=== PATIENT | male | born 1935 | race Caucasian/White ===

== ENCOUNTER 2020-06-04 21:29 | Inpatient (IN) | payer OTHER, MEDICARE ==
[~2020-06-04] VITALS: Ht 172.7 cm; Wt 77.0 kg
[2020-06-04] MEDS ORDERED: ATOR40TA PO (21:55)
[2020-06-04] MEDS ORDERED: CYCL10 PO (21:55)
[2020-06-04] MEDS ORDERED: DILTIAZEM 24HR120 M2 PO (21:57)
[2020-06-04] MEDS ORDERED: OMEP20ER PO (21:58)
[2020-06-04] MEDS ORDERED: LIDO5TO (21:58)
[2020-06-04] MEDS ORDERED: OXYC5 PO (21:59)
[2020-06-04] MEDS ORDERED: PREG100 PO (22:00)
[2020-06-04] MEDS ORDERED: XARELTO20 MG PO (22:01)
[2020-06-04] MEDS ORDERED: TAMS.4ER PO (22:02)
[2020-06-04 22:41] LABS: BASOPHILS ABSOLUTE AUTO 0.04 K/mm3 (0.00-0.23); BASOPHILS PERCENT AUTO 0 % (0-2); EOSINOPHILS ABSOLUTE AUTO 0.14 K/mm3 (0.00-0.68); EOSINOPHILS PERCENT AUTO 1 % (0-6); Hematocrit 37.5 % (37.0-53.0); IMMATURE GRAN ABSOLUTE AUTO 0.03 K/mm3 (0.00-0.10); IMMATURE GRAN PERCENT AUTO 0 % (0-1); LYMPHOCYTES ABSOLUTE AUTO 3.57 K/mm3 (0.84-5.20); LYMPHOCYTES PERCENT AUTO 30 % (21-46); MONOCYTES ABSOLUTE AUTO 0.92 K/mm3 (0.16-1.47); MONOCYTES PERCENT AUTO 8 % (4-13); Mean Corpuscular HGB 29.3 pg (26.0-34.0); Mean Corpuscular Volume 92 fL (80-100); Mean Platelet Volume 10.8 fL (9.1-12.4); NEUTROPHILS ABSOLUTE AUTO 7.21 K/mm3 (1.96-9.15); NEUTROPHILS PERCENT AUTO 61 % (41-73); Platelet Count 227 K/mm3 (150-400); RDW Coefficient Variation 13.9 % (11.7-14.2); RDW Standard Deviation 47.2 fL (35.1-46.3); Red Blood Cell Count 4.09 M/mm3 (4.30-5.90); White Blood Cell Count 11.91 K/mm3 (4.00-11.30)
[2020-06-04 23:08] LABS: Alanine Aminotransfer (ALT/SGP 16 U/L (12-78); Albumin, Blood 3.3 g/dL (3.4-5.0); Albumin/Globulin Ratio 0.8 (0.8-1.8); Alk Phos 103 U/L (50-136); Anion Gap 6 mmol/L (6-16); Aspartate Aminotrans (AST/SGOT 22 U/L (12-37); Bilirubin, Total 0.4 mg/dL (0.1-1.0); Blood Urea Nitrogen 17 mg/dL (8-24); Bun/Creatinine Ratio 18.5 (12.0-20.0); CO2, Blood 26 mmol/L (21-32); Calcium, Blood 8.5 mg/dL (8.5-10.1); Chloride, Blood 105 mmol/L (98-108); Creatinine, Blood 0.92 mg/dL (0.60-1.20); Globulin, Blood 3.9 g/dL (2.2-4.0); Glomerular Filtration Rate >60 (60-); Glucose, Blood 135 mg/dL (70-99); Potassium, Blood 4.2 mmol/L (3.5-5.5); Sodium, Blood 137 mmol/L (136-145); Total Protein, Blood 7.2 g/dL (6.4-8.2)
--- NOTE | 2020-06-05 02:00 | NUR ---
PATIENT ARRIVED VIA STRETCHER AT 0030 FROM THE ER, AWAKE AND AWARE, WITH MODERATE PAIN TREATED WITH IV PAIN MEDICATION. HE HAS A LARGE FIRM SOFTBALL SIZED HEMATOMA ON HIS RIGHT HIP/PROXIMAL FEMUR. THE POSTERIOR PORTION OF THE HEMATOMA IS PURPLE IN COLOR ON THE SKIN. PAINFUL TO LIGHT TOUGH, TURNING AND REPOSITIONING. LT HIP IS FRACTURED PER REPORT. HE HAS PAIN IN BOTH RT AND LT HIPS. PERIPHERAL PULSES PRESENT, <2 SECONDS CAP REFILL BILAT LE. PATIENT ORIENTED TO THE ROOM AND CALL LIGHT. CALL LIGHT IN REACH, URINAL IN REACH.
[2020-06-05 04:47] LABS: BASOPHILS ABSOLUTE AUTO 0.03 K/mm3 (0.00-0.23); BASOPHILS PERCENT AUTO 0 % (0-2); EOSINOPHILS ABSOLUTE AUTO 0.14 K/mm3 (0.00-0.68); EOSINOPHILS PERCENT AUTO 2 % (0-6); Hematocrit 35.1 % (37.0-53.0); Hemoglobin 11.2 g/dL (13.5-17.5); IMMATURE GRAN ABSOLUTE AUTO 0.01 K/mm3 (0.00-0.10); IMMATURE GRAN PERCENT AUTO 0 % (0-1); LYMPHOCYTES ABSOLUTE AUTO 1.94 K/mm3 (0.84-5.20); LYMPHOCYTES PERCENT AUTO 28 % (21-46); MONOCYTES ABSOLUTE AUTO 0.99 K/mm3 (0.16-1.47); MONOCYTES PERCENT AUTO 14 % (4-13); Mean Corpuscular HGB 28.9 pg (26.0-34.0); Mean Corpuscular HGB Conc 31.9 g/dL (31.5-36.5); Mean Corpuscular Volume 91 fL (80-100); Mean Platelet Volume 10.3 fL (9.1-12.4); NEUTROPHILS PERCENT AUTO 56 % (41-73); Platelet Count 192 K/mm3 (150-400); RDW Standard Deviation 46.4 fL (35.1-46.3); Red Blood Cell Count 3.88 M/mm3 (4.30-5.90); White Blood Cell Count 7.01 K/mm3 (4.00-11.30)
--- NOTE | 2020-06-05 05:01 | NUR ---
PATIENT HAS BEEN ABLE TO SLEEP SINCE ADMISSION. HE HAS BEEN ABLE TO READJUST HIS BODY SLIGHTLY TO POC. NO ACUTE CHANGES. PATIENT HAS NOT HAD ANYTHING TO EAT TONIGHT AND HAS ONLY HAD SIPS OF WATER UP TO 0200. NO KNOWN PLANS FOR SURGERY TODAY, COVID TEST SENT. CALL LIGHT IN REACH.
[2020-06-05 05:09] LABS: Anion Gap 5 mmol/L (6-16); Blood Urea Nitrogen 15 mg/dL (8-24); Bun/Creatinine Ratio 16.8 (12.0-20.0); CO2, Blood 28 mmol/L (21-32); Calcium, Blood 8.4 mg/dL (8.5-10.1); Chloride, Blood 105 mmol/L (98-108); Glomerular Filtration Rate >60 (60-); Glucose, Blood 96 mg/dL (70-99); Potassium, Blood 3.8 mmol/L (3.5-5.5); Sodium, Blood 138 mmol/L (136-145)
--- NOTE | 2020-06-05 15:35 | NUR ---
THIS RN RECIEVED REPORT AND IS ASSUMING CARE OF PT AT THIS TIME. PT RESTING QUIETLY, RESP E/U.
--- NOTE | 2020-06-05 19:24 | NUR ---
REPORT GIVEN TO YAYA RN.
--- NOTE | 2020-06-06 03:50 | NUR ---
SHIFT SUMMARY: PT A&O X4. VSS. AWAITING SURGERY FOR L HIP FX. PLAN FOR OR TODAY. PT HAS BEEN NPO SINCE MIDNIGHT WITH LR INFUSING AT 75CC/HR PER ORDERS. CBG Q6. BLOOD SURGAR HAS BEEN STABLE AT 113. PT NOT REQUIRING PAIN MEDICATION OVER NIGHT. APPEARS TO BE RESTING. NO COMPLAINTS AT THIS TIME.
--- NOTE | 2020-06-06 09:45 | NUR ---
PT TAKEN TO PACU BY SAVANNAH CALDERON.
--- NOTE | 2020-06-06 19:44 | NUR ---
SHIFT SUMMARY PT HAD SURGERY TO DAY WITH DR. RENDON. HE ARRIVED BACK TO THE UNIT AT 1750. HE IS SLEEPING BUT AWAKENS WHEN SPOKEN TO. VSS. REPORT GIVEN TO TATA CALDERON.
--- NOTE | 2020-06-07 05:31 | NUR ---
POD1 ROBERT/ANTERIOR APPROACH R/T CLOSE HIP FX. VSS. PT DENIES PAIN. OFFERED TO TAKE PAIN MEDS BUT PT REFUSED. PT SLEPT GOOD LAST NIGHT. ENC TURN Q2 LAST NIGHT. AQUACEL DRESSING ON R HIP, CDI. PT LAURA PO INTAKE WELL DENIES N/V. PT NO APPETITE LAST NIGHT, JUST HAD SHANE AND WATER. DIET ADV LAURA. PT DENIES PASSING FLATUS. BEDREST. PT HAS CHRONIC N/T. WEAN ON 1L O2, WITH 95% SAT. RA ON BASELINE ABX AND FLUIDS ADMINSTERED. ADEQUATE UA OUTPUT, USING URINAL. CBG AT 165 LAST NIGHT. ANTICIPATING PT/OT EVAL TODAY.
[2020-06-07 09:00] LABS: Hematocrit 29.3 % (37.0-53.0); Hemoglobin 9.8 g/dL (13.5-17.5); Mean Corpuscular HGB Conc 33.4 g/dL (31.5-36.5); Mean Corpuscular Volume 90 fL (80-100); Mean Platelet Volume 10.3 fL (9.1-12.4); Platelet Count 165 K/mm3 (150-400); RDW Coefficient Variation 13.6 % (11.7-14.2); RDW Standard Deviation 44.7 fL (35.1-46.3); Red Blood Cell Count 3.27 M/mm3 (4.30-5.90); White Blood Cell Count 13.44 K/mm3 (4.00-11.30)
[2020-06-07 09:22] LABS: Albumin, Blood 2.5 g/dL (3.4-5.0); Anion Gap 7 mmol/L (6-16); Blood Urea Nitrogen 16 mg/dL (8-24); Bun/Creatinine Ratio 18.1 (12.0-20.0); CO2, Blood 27 mmol/L (21-32); Calcium, Blood 8.4 mg/dL (8.5-10.1); Chloride, Blood 105 mmol/L (98-108); Creatinine, Blood 0.88 mg/dL (0.60-1.20); Glomerular Filtration Rate >60 (60-); Glucose, Blood 155 mg/dL (70-99); Phosphorus, Blood 3.3 mg/dL (2.5-4.9); Sodium, Blood 139 mmol/L (136-145)
--- NOTE | 2020-06-07 16:14 | NUR ---
Shift summary Patient has ambulated in the [place] multiple times this shift with a SBA. VSS. Pain controlled with Oxycodone. Patient has been up in the recliner chair for most of the day. Patient likely to discharge home tomorrow after working with physical therapy. Call light within patient reach.
--- NOTE | 2020-06-08 05:31 | NUR ---
SHIFT SUMMARY L HIP FX REPAIR POD2, A/O X4, VSS, PAIN WELL CONTROLLED PER EMAR, TOLERATING PO, PASSING FLATUS, DRESSING C/D/I, VOIDING WELL, PLAN TO DC HOME TODAY. CALL LIGHT IN REACH, WILL CONTINUE TO MONITOR AND REPORT TO ONCOMING DAY RN.
[2020-06-08 09:57] LABS: Hematocrit 31.1 % (37.0-53.0); Mean Corpuscular HGB 29.4 pg (26.0-34.0); Mean Corpuscular HGB Conc 32.2 g/dL (31.5-36.5); Mean Corpuscular Volume 92 fL (80-100); Mean Platelet Volume 10.4 fL (9.1-12.4); Platelet Count 189 K/mm3 (150-400); RDW Standard Deviation 47.4 fL (35.1-46.3); White Blood Cell Count 10.03 K/mm3 (4.00-11.30)
[2020-06-08] MEDS ORDERED: OXYC5 PO (12:48)
--- NOTE | 2020-06-08 16:04 | NUR ---
DISCHARGE SUMMARY PT A&OX4, VSS, LEFT FLOOR VIA WC WITH GUM ROLLING MACHINE TENDER TO GO HOME WITH NEPHEW, WITH ALL PERSONAL POSSESSIONS INCLUDING DENTURES, CELL PHONE/CLIPPER OPERATOR, DC PACKET AND 1 NARC SCRIPT. DC INSTRUCTIONS PROVIDED. PT REP UNDERSTANDING THOSE INSTRUCTIONS INCLUDING FU WITH SURGEON, WBAT, ALL AMBULATION WITH FWW (& GB - SENT HOME WITH PT), USE POLAR DEEPAK/ICE, CHANGE DRESSINGS ON SATURDAYS (2 AQUACEL DRESSINGS SENT HOME WITH PT). IV DC'D.
== END 2020-06-08 15:50 | disposition home or self-care (01) | DRG 522 ==
LOC: ER 21:29 → SURS 21:30
PROVIDERS: Emergency Medicine; Internal Medicine; Orthopaedic Surgery; ADMIT Family Medicine
PROC: 0SCB0ZZ Extirpation of Matter from Left Hip Joint, Open Approach (ICD-10-PCS; 2020-06-06)
PROC: 0SRS03A Replacement of Left Hip Joint, Femoral Surface with Ceramic Synthetic Substitute, Uncemented, Open Approach (ICD-10-PCS; principal; 2020-06-06 10:00)
DX: S72.002A Fracture of unspecified part of neck of left femur, initial encounter for closed fracture (principal); I48.20 Chronic atrial fibrillation, unspecified; E11.9 Type 2 diabetes mellitus without complications; E78.5 Hyperlipidemia, unspecified; G62.9 Polyneuropathy, unspecified; I10 Essential (primary) hypertension; I25.10 Atherosclerotic heart disease of native coronary artery without angina pectoris; K21.9 Gastro-esophageal reflux disease without esophagitis; Z85.46 Personal history of malignant neoplasm of prostate; Z95.1 Presence of aortocoronary bypass graft; Z96.653 Presence of artificial knee joint, bilateral; W19.XXXA Unspecified fall, initial encounter; M16.0 Bilateral primary osteoarthritis of hip; Z79.01 Long term (current) use of anticoagulants; N40.0 Benign prostatic hyperplasia without lower urinary tract symptoms; Z87.891 Personal history of nicotine dependence; Z66 Do not resuscitate
CPT/HCPCS: 20611; 36415; 71045; 72170; 80048; 80053; 80069; 82947; 85025; 85027; 88305; 88311; 93005; 93010; 97110; 97116; 97162; 97165; 97530; 97535; 99285-25; A9270-GY; C1776; J0171; J0690; J0735; J1100; J1885; J2405; J2704; J2795; J3010; J7120; U0004

== ENCOUNTER 2020-10-02 13:38 | Emergency (ER) | payer OTHER, MEDICARE ==
[~2020-10-02] VITALS: Ht 172.7 cm; Wt 76.7 kg
[~2020-10-02 13:38] MED LIST: ATOR40TA PO; CYCL10 PO; DILTIAZEM 24HR120 M2 PO; LIDO5TO; OMEP20ER PO; OXYC5 PO; PREG100 PO; TAMS.4ER PO; XARELTO20 MG PO
[2020-10-02 14:48] LABS: BASOPHILS ABSOLUTE AUTO 0.02 K/mm3 (0.00-0.23); BASOPHILS PERCENT AUTO 0 % (0-2); EOSINOPHILS ABSOLUTE AUTO 0.08 K/mm3 (0.00-0.68); EOSINOPHILS PERCENT AUTO 1 % (0-6); Hematocrit 39.1 % (37.0-53.0); IMMATURE GRAN ABSOLUTE AUTO 0.01 K/mm3 (0.00-0.10); IMMATURE GRAN PERCENT AUTO 0 % (0-1); LYMPHOCYTES ABSOLUTE AUTO 1.62 K/mm3 (0.84-5.20); LYMPHOCYTES PERCENT AUTO 29 % (21-46); MONOCYTES ABSOLUTE AUTO 0.69 K/mm3 (0.16-1.47); MONOCYTES PERCENT AUTO 12 % (4-13); Mean Corpuscular HGB 28.3 pg (26.0-34.0); Mean Corpuscular HGB Conc 33.2 g/dL (31.5-36.5); Mean Corpuscular Volume 85 fL (80-100); Mean Platelet Volume 10.4 fL (9.1-12.4); NEUTROPHILS ABSOLUTE AUTO 3.22 K/mm3 (1.96-9.15); NEUTROPHILS PERCENT AUTO 57 % (41-73); Platelet Count 221 K/mm3 (150-400); RDW Standard Deviation 46.5 fL (35.1-46.3); White Blood Cell Count 5.64 K/mm3 (4.00-11.30)
[2020-10-02 15:10] LABS: Alanine Aminotransfer (ALT/SGP 19 U/L (12-78); Albumin, Blood 3.3 g/dL (3.4-5.0); Albumin/Globulin Ratio 0.8 (0.8-1.8); Alk Phos 94 U/L (50-136); Anion Gap 7 mmol/L (6-16); Aspartate Aminotrans (AST/SGOT 16 U/L (12-37); Bilirubin, Total 0.6 mg/dL (0.1-1.0); Blood Urea Nitrogen 19 mg/dL (8-24); Bun/Creatinine Ratio 17.3 (12.0-20.0); CO2, Blood 24 mmol/L (21-32); Chloride, Blood 108 mmol/L (98-108); Globulin, Blood 4.4 g/dL (2.2-4.0); Glomerular Filtration Rate >60 (60-); Glucose, Blood 140 mg/dL (70-99); Potassium, Blood 3.9 mmol/L (3.5-5.5); Sodium, Blood 139 mmol/L (136-145); Total Protein, Blood 7.7 g/dL (6.4-8.2)
[2020-10-02 15:12] LABS: Troponin I <0.015 ng/mL (0.000-0.040)
== END 2020-10-02 16:30 | disposition home or self-care (01) ==
LOC: ER 13:38
PROVIDERS: Emergency Medicine
DX: I48.91 Unspecified atrial fibrillation (principal); E11.9 Type 2 diabetes mellitus without complications; Z79.899 Other long term (current) drug therapy; Z88.8 Allergy status to other drugs, medicaments and biological substances
CPT/HCPCS: 71045; 80053; 83880; 84484; 85025; 93005; 93010; 96374; 99284-25

== ENCOUNTER 2021-08-16 15:38 | Emergency (ER) | payer OTHER, MEDICARE ==
[~2021-08-16] VITALS: Ht 170.2 cm; Wt 72.6 kg
[2021-08-16 16:05] LABS: BASOPHILS ABSOLUTE AUTO 0.05 K/mm3 (0.00-0.23); BASOPHILS PERCENT AUTO 1 % (0-2); EOSINOPHILS ABSOLUTE AUTO 0.16 K/mm3 (0.00-0.68); EOSINOPHILS PERCENT AUTO 2 % (0-6); Hematocrit 37.8 % (37.0-53.0); Hemoglobin 12.5 g/dL (13.5-17.5); IMMATURE GRAN ABSOLUTE AUTO 0.01 K/mm3 (0.00-0.10); IMMATURE GRAN PERCENT AUTO 0 % (0-1); LYMPHOCYTES PERCENT AUTO 43 % (21-46); MONOCYTES ABSOLUTE AUTO 1.05 K/mm3 (0.16-1.47); MONOCYTES PERCENT AUTO 13 % (4-13); Mean Corpuscular HGB 27.3 pg (26.0-34.0); Mean Corpuscular HGB Conc 33.1 g/dL (31.5-36.5); Mean Corpuscular Volume 83 fL (80-100); Mean Platelet Volume 9.5 fL (9.1-12.4); NEUTROPHILS ABSOLUTE AUTO 3.32 K/mm3 (1.96-9.15); NEUTROPHILS PERCENT AUTO 41 % (41-73); Platelet Count 271 K/mm3 (150-400); RDW Coefficient Variation 14.6 % (11.7-14.2); RDW Standard Deviation 43.8 fL (35.1-46.3); Red Blood Cell Count 4.58 M/mm3 (4.30-5.90); White Blood Cell Count 8.09 K/mm3 (4.00-11.30)
[2021-08-16 16:22] LABS: Alanine Aminotransfer (ALT/SGP 18 U/L (12-78); Albumin, Blood 3.5 g/dL (3.4-5.0); Albumin/Globulin Ratio 0.7 (0.8-1.8); Alk Phos 94 U/L (50-136); Anion Gap 7 mmol/L (6-16); Aspartate Aminotrans (AST/SGOT 21 U/L (12-37); Bilirubin, Total 0.4 mg/dL (0.1-1.0); Blood Urea Nitrogen 19 mg/dL (8-24); Bun/Creatinine Ratio 19.9 (12.0-20.0); CO2, Blood 25 mmol/L (21-32); Calcium, Blood 9.1 mg/dL (8.5-10.1); Chloride, Blood 102 mmol/L (98-108); Creatinine, Blood 0.96 mg/dL (0.60-1.20); Globulin, Blood 4.8 g/dL (2.2-4.0); Glomerular Filtration Rate >60 (60-); Glucose, Blood 71 mg/dL (70-99); Potassium, Blood 4.2 mmol/L (3.5-5.5); Sodium, Blood 134 mmol/L (136-145); Total Protein, Blood 8.3 g/dL (6.4-8.2); Troponin I <0.015 ng/mL (0.000-0.040)
[2021-08-16] MEDS ORDERED: C COMPLEX1000 M1 PO (17:19)
[2021-08-16] MEDS ORDERED: MAGNESIUM OXID500 MG PO (17:19)
[2021-08-16 17:21] LABS: Source, Urine Condom Cath
[2021-08-16 17:33] LABS: Bilirubin, Urine Neg (Neg); Blood, Urine 2+ (Neg); Glucose Qualitative, Urine Neg (Neg); Ketones, Urine Neg (Neg); Leukocyte Esterase, Urine Neg (Neg); Nitrite, Urine Neg (Neg); Protein, Urine Neg (Neg); Specific Gravity, Urine 1.005 (1.003-1.022); Urobilinogen, Urine NORM (Normal)
[2021-08-16 17:42] LABS: Appearance, Urine Clear (Clear); Color, Urine Pale Yellow (P-Yellow)
[2021-08-16 17:43] LABS: Bacteria Rare /hpf; Squamous Epithelial Cells Rare /hpf (Few); White Blood Cells, Urine 0-2 /hpf (0-5)
== END 2021-08-16 18:18 | disposition home or self-care (01) ==
LOC: ER 15:38
PROVIDERS: Emergency Medicine; Physician Assistant
DX: R42 Dizziness and giddiness (principal); I48.91 Unspecified atrial fibrillation; E11.9 Type 2 diabetes mellitus without complications; Z88.3 Allergy status to other anti-infective agents; Z79.899 Other long term (current) drug therapy; I25.810 Atherosclerosis of coronary artery bypass graft(s) without angina pectoris
CPT/HCPCS: 71045; 80053; 81001; 84484; 85025; 93005; 93010; 99285-25

== ENCOUNTER 2021-12-17 08:35 | Day surgery (SDC) | payer OTHER ==
[~2021-12-17] VITALS: Ht 172.7 cm; Wt 72.6 kg
[~2021-12-17 08:35] MED LIST changes: +C COMPLEX1000 M1 PO; +MAGNESIUM OXID500 MG PO
[2021-12-17] MEDS ORDERED: Ketoconazole120 ML TOP (09:26)
[2021-12-17] MEDS ORDERED: FERROUS GLUCON324 M7 PO (09:27)
== END 2021-12-17 23:00 | disposition home or self-care (01) ==
LOC: MHTC 08:35
DX: I35.0 Nonrheumatic aortic (valve) stenosis (principal); I25.10 Atherosclerotic heart disease of native coronary artery without angina pectoris; T82.858A Stenosis of other vascular prosthetic devices, implants and grafts, initial encounter; E11.9 Type 2 diabetes mellitus without complications; I10 Essential (primary) hypertension; E78.5 Hyperlipidemia, unspecified; Z88.5 Allergy status to narcotic agent
CPT/HCPCS: 82947; 93459; 99152; 99153; C1760; C1769; C1894; J1644; J2250; J3010; J7030; Q9967

== ENCOUNTER 2022-05-25 12:36 | Emergency (ER) | payer OTHER ==
[~2022-05-25] VITALS: Ht 172.7 cm; Wt 65.8 kg
[~2022-05-25 12:36] MED LIST changes: +FERROUS GLUCON324 M7 PO; +Ketoconazole120 ML TOP
[2022-05-25 13:51] LABS: BASOPHILS ABSOLUTE AUTO 0.03 K/mm3 (0.00-0.23); BASOPHILS PERCENT AUTO 0 % (0-2); EOSINOPHILS ABSOLUTE AUTO 0.11 K/mm3 (0.00-0.68); EOSINOPHILS PERCENT AUTO 2 % (0-6); Hematocrit 39.5 % (37.0-53.0); Hemoglobin 13.9 g/dL (13.5-17.5); IMMATURE GRAN ABSOLUTE AUTO 0.01 K/mm3 (0.00-0.10); IMMATURE GRAN PERCENT AUTO 0 % (0-1); LYMPHOCYTES ABSOLUTE AUTO 1.72 K/mm3 (0.84-5.20); LYMPHOCYTES PERCENT AUTO 26 % (21-46); MONOCYTES ABSOLUTE AUTO 0.75 K/mm3 (0.16-1.47); MONOCYTES PERCENT AUTO 11 % (4-13); Mean Corpuscular HGB 30.9 pg (26.0-34.0); Mean Corpuscular HGB Conc 35.2 g/dL (31.5-36.5); Mean Corpuscular Volume 88 fL (80-100); Mean Platelet Volume 9.8 fL (9.1-12.4); NEUTROPHILS ABSOLUTE AUTO 4.08 K/mm3 (1.96-9.15); NEUTROPHILS PERCENT AUTO 61 % (41-73); Platelet Count 228 K/mm3 (150-400); RDW Coefficient Variation 13.2 % (11.7-14.2)
[2022-05-25 14:03] LABS: Albumin, Blood 3.5 g/dL (3.4-5.0); Albumin/Globulin Ratio 0.8 (0.8-1.8); Bilirubin, Total 0.7 mg/dL (0.1-1.0); Bun/Creatinine Ratio 16.7 (12.0-20.0); Calcium, Blood 9.3 mg/dL (8.5-10.1); Creatinine, Blood 0.9 mg/dL (0.60-1.20); Globulin, Blood 4.2 g/dL (2.2-4.0); Potassium, Blood 3.5 mmol/L (3.5-5.5); Total Protein, Blood 7.7 g/dL (6.4-8.2)
[2022-05-25] MEDS ORDERED: MECL12.5 PO (16:37)
== END 2022-05-25 17:12 | disposition home or self-care (01) ==
LOC: ER 12:36
PROVIDERS: Student in an Organized Health Care Education/Training Program
DX: R42 Dizziness and giddiness (principal); I25.10 Atherosclerotic heart disease of native coronary artery without angina pectoris; E11.9 Type 2 diabetes mellitus without complications; I48.91 Unspecified atrial fibrillation; Z88.5 Allergy status to narcotic agent; Z88.8 Allergy status to other drugs, medicaments and biological substances; Z79.899 Other long term (current) drug therapy
CPT/HCPCS: 36415; 71045; 80053; 83880; 84484; 85025; 93005; 93010; J2405; J7030

== ENCOUNTER 2023-04-30 11:04 | Emergency (ER) | payer OTHER ==
[~2023-04-30] VITALS: Ht 170.2 cm; Wt 68.5 kg
[~2023-04-30 11:04] MED LIST changes: +MECL12.5 PO
[2023-04-30 11:08] VITALS: BP 120/91
== END 2023-04-30 12:16 | disposition home or self-care (01) ==
LOC: ER 11:04
DX: S63.91XA Sprain of unspecified part of right wrist and hand, initial encounter (principal); W01.0XXA Fall on same level from slipping, tripping and stumbling without subsequent striking against object, initial encounter; E11.9 Type 2 diabetes mellitus without complications; I48.91 Unspecified atrial fibrillation; Z79.01 Long term (current) use of anticoagulants; Z95.1 Presence of aortocoronary bypass graft
CPT/HCPCS: 29125; 73130; 99283-25

== ENCOUNTER 2023-05-19 12:39 | Emergency (ER) | payer OTHER ==
[~2023-05-19] VITALS: Ht 170.2 cm; Wt 81.7 kg
[2023-05-19] MEDS ORDERED: GABAPENTIN600 MG PO (13:05)
[2023-05-19] MEDS ORDERED: DULO30 PO (13:05)
[2023-05-19] MEDS ORDERED: MELA3 PO (13:06)
[2023-05-19] MEDS ORDERED: FAMO40 PO (13:07)
[2023-05-19] MEDS ORDERED: STIOLTO RESPIMAT4 G1 INH (13:07)
[2023-05-19] MEDS ORDERED: CYCL10 PO (13:08)
[2023-05-19 13:29] LABS: BASOPHILS ABSOLUTE AUTO 0.05 K/mm3 (0.00-0.23); BASOPHILS PERCENT AUTO 1 % (0-2); EOSINOPHILS ABSOLUTE AUTO 0.15 K/mm3 (0.00-0.68); EOSINOPHILS PERCENT AUTO 3 % (0-6); Hematocrit 38.4 % (37.0-53.0); Hemoglobin 12.4 g/dL (13.5-17.5); IMMATURE GRAN ABSOLUTE AUTO 0.01 K/mm3 (0.00-0.10); IMMATURE GRAN PERCENT AUTO 0 % (0-1); LYMPHOCYTES ABSOLUTE AUTO 2.17 K/mm3 (0.84-5.20); LYMPHOCYTES PERCENT AUTO 42 % (21-46); MONOCYTES ABSOLUTE AUTO 0.67 K/mm3 (0.16-1.47); MONOCYTES PERCENT AUTO 13 % (4-13); Mean Corpuscular HGB 27.7 pg (26.0-34.0); Mean Corpuscular HGB Conc 32.3 g/dL (31.5-36.5); Mean Corpuscular Volume 86 fL (80-100); Mean Platelet Volume 9.8 fL (9.1-12.4); NEUTROPHILS ABSOLUTE AUTO 2.08 K/mm3 (1.96-9.15); NEUTROPHILS PERCENT AUTO 41 % (41-73); Platelet Count 286 K/mm3 (150-400); RDW Coefficient Variation 18.2 % (11.7-14.2); RDW Standard Deviation 57.1 fL (35.1-46.3); Red Blood Cell Count 4.48 M/mm3 (4.30-5.90); White Blood Cell Count 5.13 K/mm3 (4.00-11.30)
[2023-05-19 13:40] LABS: Albumin, Blood 3.3 g/dL (3.4-5.0); Albumin/Globulin Ratio 0.8 (0.8-1.8); Bilirubin, Total 0.3 mg/dL (0.1-1.0); Bun/Creatinine Ratio 13.4 (12.0-20.0); Calcium, Blood 9.2 mg/dL (8.5-10.1); Creatinine, Blood 1.12 mg/dL (0.60-1.20); Globulin, Blood 4.3 g/dL (2.2-4.0); Potassium, Blood 4.9 mmol/L (3.5-5.5); Total Protein, Blood 7.6 g/dL (6.4-8.2)
[2023-05-19] MEDS ORDERED: DILT30 PO (15:00)
[2023-05-19 15:15] VITALS: BP 127/104
== END 2023-05-19 15:20 | disposition home or self-care (01) ==
LOC: ER 12:39
PROVIDERS: Student in an Organized Health Care Education/Training Program
DX: I48.92 Unspecified atrial flutter (principal); Z95.1 Presence of aortocoronary bypass graft; E11.9 Type 2 diabetes mellitus without complications; Z88.1 Allergy status to other antibiotic agents; Z88.5 Allergy status to narcotic agent; Z88.6 Allergy status to analgesic agent; Z79.01 Long term (current) use of anticoagulants; Z79.899 Other long term (current) drug therapy
CPT/HCPCS: 80053; 83735; 85025; 96374; 99285-25

== ENCOUNTER 2023-05-20 14:04 | Emergency (ER) | payer OTHER ==
[~2023-05-20] VITALS: Ht 170.2 cm; Wt 68.5 kg
[~2023-05-20 14:04] MED LIST changes: +DILT30 PO; +DULO30 PO; +FAMO40 PO; +GABAPENTIN600 MG PO; +MELA3 PO; +STIOLTO RESPIMAT4 G1 INH
[2023-05-20 14:48] LABS: BASOPHILS ABSOLUTE AUTO 0.03 K/mm3 (0.00-0.23); BASOPHILS PERCENT AUTO 1 % (0-2); EOSINOPHILS ABSOLUTE AUTO 0.16 K/mm3 (0.00-0.68); EOSINOPHILS PERCENT AUTO 4 % (0-6); Hematocrit 41.9 % (37.0-53.0); Hemoglobin 13.6 g/dL (13.5-17.5); IMMATURE GRAN PERCENT AUTO 0 % (0-1); LYMPHOCYTES ABSOLUTE AUTO 1.63 K/mm3 (0.84-5.20); LYMPHOCYTES PERCENT AUTO 38 % (21-46); MONOCYTES ABSOLUTE AUTO 0.47 K/mm3 (0.16-1.47); MONOCYTES PERCENT AUTO 11 % (4-13); Mean Corpuscular HGB 27.7 pg (26.0-34.0); Mean Corpuscular HGB Conc 32.5 g/dL (31.5-36.5); Mean Corpuscular Volume 85 fL (80-100); Mean Platelet Volume 9.7 fL (9.1-12.4); NEUTROPHILS ABSOLUTE AUTO 2.04 K/mm3 (1.96-9.15); NEUTROPHILS PERCENT AUTO 47 % (41-73); Platelet Count 243 K/mm3 (150-400); RDW Standard Deviation 56.4 fL (35.1-46.3); Red Blood Cell Count 4.91 M/mm3 (4.30-5.90); White Blood Cell Count 4.33 K/mm3 (4.00-11.30)
[2023-05-20 15:06] LABS: Albumin, Blood 3.5 g/dL (3.4-5.0); Albumin/Globulin Ratio 0.8 (0.8-1.8); Bilirubin, Total 0.6 mg/dL (0.1-1.0); Bun/Creatinine Ratio 13.9 (12.0-20.0); Calcium, Blood 9.2 mg/dL (8.5-10.1); Creatinine, Blood 1.08 mg/dL (0.60-1.20); Globulin, Blood 4.6 g/dL (2.2-4.0); Potassium, Blood 4.4 mmol/L (3.5-5.5); Total Protein, Blood 8.1 g/dL (6.4-8.2)
[2023-05-20 15:30] VITALS: BP 114/105
== END 2023-05-20 15:44 | disposition home or self-care (01) ==
LOC: ER 14:04
PROVIDERS: Emergency Medicine
DX: I48.91 Unspecified atrial fibrillation (principal); Z88.1 Allergy status to other antibiotic agents; Z88.5 Allergy status to narcotic agent; Z88.8 Allergy status to other drugs, medicaments and biological substances; Z79.899 Other long term (current) drug therapy; E11.9 Type 2 diabetes mellitus without complications
CPT/HCPCS: 80053; 85025; 93005; 93010; 99284-25

== ENCOUNTER 2023-05-25 13:04 | Inpatient (IN) | payer OTHER ==
[~2023-05-25] VITALS: Ht 160 cm; Wt 69.0 kg
[2023-05-25 13:44] LABS: BASOPHILS ABSOLUTE AUTO 0.02 K/mm3 (0.00-0.23); BASOPHILS PERCENT AUTO 0 % (0-2); EOSINOPHILS ABSOLUTE AUTO 0.16 K/mm3 (0.00-0.68); EOSINOPHILS PERCENT AUTO 3 % (0-6); Hematocrit 34.1 % (37.0-53.0); Hemoglobin 11.3 g/dL (13.5-17.5); IMMATURE GRAN ABSOLUTE AUTO 0.01 K/mm3 (0.00-0.10); IMMATURE GRAN PERCENT AUTO 0 % (0-1); LYMPHOCYTES ABSOLUTE AUTO 1.73 K/mm3 (0.84-5.20); LYMPHOCYTES PERCENT AUTO 32 % (21-46); MONOCYTES ABSOLUTE AUTO 0.66 K/mm3 (0.16-1.47); MONOCYTES PERCENT AUTO 12 % (4-13); Mean Corpuscular HGB 28.2 pg (26.0-34.0); Mean Corpuscular HGB Conc 33.1 g/dL (31.5-36.5); Mean Corpuscular Volume 85 fL (80-100); Mean Platelet Volume 10.1 fL (9.1-12.4); NEUTROPHILS ABSOLUTE AUTO 2.91 K/mm3 (1.96-9.15); NEUTROPHILS PERCENT AUTO 53 % (41-73); Platelet Count 236 K/mm3 (150-400); RDW Coefficient Variation 17.9 % (11.7-14.2); Red Blood Cell Count 4.01 M/mm3 (4.30-5.90); White Blood Cell Count 5.49 K/mm3 (4.00-11.30)
[2023-05-25 14:03] LABS: Albumin, Blood 3.3 g/dL (3.4-5.0); Albumin/Globulin Ratio 0.8 (0.8-1.8); Bilirubin, Total 0.3 mg/dL (0.1-1.0); Calcium, Blood 8.9 mg/dL (8.5-10.1); Globulin, Blood 3.9 g/dL (2.2-4.0); Magnesium, Blood 1.8 mg/dL (1.6-2.4); Potassium, Blood 4.2 mmol/L (3.5-5.5); Total Protein, Blood 7.2 g/dL (6.4-8.2)
[2023-05-25] MEDS ORDERED: DILT30 PO (14:30)
[2023-05-25] MEDS ORDERED: DILT60 PO (15:14)
[2023-05-25] MEDS ORDERED: TAMS.4ER PO (16:45)
--- NOTE | 2023-05-25 17:51 | NUR ---
Call to Dr. Dyer regarding elevated troponin of 819. New order for aspirin and another troponin draw 6 hours from the last one. Pt arriving to PCU shortly from the ED.
[2023-05-25 18:00] VITALS: BP 153/114
--- NOTE | 2023-05-25 18:00 | NUR ---
Arrival to the unit. Ambulatory in the room ad danielle, asymptomatic with atrial flutter 133 bpm. Pt sat on side of bed and vital signs were taken. DEnies shortness of breath, denies discomfort/pain at this time.
[2023-05-25] MEDS ORDERED: DILT120ERA PO (18:17)
--- NOTE | 2023-05-25 19:28 | NUR ---
Bedside report given to Sarita Solorzano RN.
[2023-05-25 20:24] VITALS: BP 123/84
--- NOTE | 2023-05-25 23:16 | NUR ---
CALL TO MD this rn called md to inform of critical high trop. md placed new orders. see orders. patient remains chest pain free and no changes in condition.
[2023-05-25 23:19] VITALS: BP 128/73
[2023-05-26] LABS: Anti-Xa UFH, PHA Monitoring <0.10 IU/mL; International Normalized Ratio 1.04; Prothrombin Time Results 10.9 Sec (9.7-11.5)
[2023-05-26 02:19] LABS: Hematocrit 32.5 % (37.0-53.0); Hemoglobin 10.8 g/dL (13.5-17.5); Mean Corpuscular HGB Conc 33.2 g/dL (31.5-36.5); Mean Corpuscular Volume 84 fL (80-100); Mean Platelet Volume 9.8 fL (9.1-12.4); Platelet Count 229 K/mm3 (150-400); RDW Coefficient Variation 17.8 % (11.7-14.2); RDW Standard Deviation 54.8 fL (35.1-46.3); Red Blood Cell Count 3.86 M/mm3 (4.30-5.90); White Blood Cell Count 5.76 K/mm3 (4.00-11.30)
[2023-05-26 02:46] LABS: Bun/Creatinine Ratio 15.8 (12.0-20.0); Calcium, Blood 8.3 mg/dL (8.5-10.1); Creatinine, Blood 1.01 mg/dL (0.60-1.20); Potassium, Blood 3.9 mmol/L (3.5-5.5); Thyroid Stimulating Hormone 2.68 uIU/mL (0.360-4.800)
[2023-05-26 03:20] VITALS: BP 121/72
--- NOTE | 2023-05-26 04:04 | NUR ---
CRITICAL TROP patient had criticalhigh trop. this rn called md and orders placed.
--- NOTE | 2023-05-26 04:10 | NUR ---
shift summary this rn assumed care at 1900. vital signs stable. tele afib 100s. patient is alert and oriented x4. perrla. patient reports no chest pain/pressure throughout this shift. patient reports no shortness of breath. patient reports neuropathy which patient received evening neurotinin for, and still reported discomfort from it throughout the night. patient started on a heparin drip at 15u/kg/hr, rate 21.6ml/hr and dose weight at 72kg. see emar. see shift assessment for further detials. plan of care is up to date. call light within reach.
[2023-05-26 09:32] VITALS: BP 124/91
[2023-05-26 12:15] VITALS: BP 125/96
[2023-05-26 16:41] VITALS: BP 130/99
--- NOTE | 2023-05-26 18:54 | NUR ---
ASSUMED CARE OF PT AT 0700 THIS AM. NO ACUTE CHANGES T/O THE SHIFT. PT HAS DENIED CHEST PAIN OR PRESSURE ALL DAY. DR PATTEN (KNOWLEDGE MANAGEMENT ADVISOR) CONSULTED BY DR MOODY R/T PT'S ELEVATED TROPS AND SEVERE AV STENOSIS ON ECHO. PLAN TO [facility] FOR NEW DX CHF, MONITOR PT UNTIL MONDAY AND LIKELY DISCHARGE IF DOING WELL. PLAN IS FOR PT TO FOLLOW UP AN OUTPT FOR POSSIBLE TAVR IN THE NEAR FUTURE. PT AND FAMILY UPDATED ON PLAN OF CARE. PT HAS REMAINED ON HEPARIN GTT T/O THE SHIFT. WILL CONTINUE TO MONITOR AND GIVE REPORT TO NOC SHIFT RN.
[2023-05-26 20:00] VITALS: BP 108/71
[2023-05-26 23:13] VITALS: BP 119/69
[2023-05-27 03:34] VITALS: BP 117/67
[2023-05-27 05:17] LABS: Hematocrit 37.1 % (37.0-53.0); Hemoglobin 11.3 g/dL (13.5-17.5); Mean Platelet Volume 10.7 fL (9.1-12.4); Platelet Count 203 K/mm3 (150-400)
--- NOTE | 2023-05-27 05:59 | NUR ---
SHIFT SUMMARY A/Ox4 AND COOPERATIVE WITH STAFF. ANSWERS QUESTIONS APPROPRIATELY AND ABLE TO MAKE HIS NEEDS KNOWN. NO ACUTE EVENT OVERNIGHT FOR PT WAS ABLE TO SLEEP T/O MOST OF THE SHIFT. CARDIAC, REMAINS IN AFIB RHYTHM RANGING 90-110's WITH NO REPORTS OF ANY CP OR PRESSURE T/O THE NIGHT. PT HAD TWO FIVE BEAT RUNS OF V-TACH OVERNIGHT. PT WAS ASYMPTOMATIC OF THESE EVENTS. SBP HAS BEEN STABLE RANGING 100-110's. RESPIRATORY, MAINTAINS SPO2 >92% ON RA WITH NO COMPLAINTS OF SOB WHILE AT REST. GI/, ABLE TO AMBULATE TO BATHROOM VIA SBA. DENIES ANY CP, PRESSURE, DIZZINESS, OR PALPITATIONS WITH EXERTION. REPORTS x3 BM's THIS SHIFT, WITH EACH ONE BECOMING MORE LOOSE THEN THE LAST. HEPARIN gtt IS BEING MANAGED BY PHARMACY AND HAS BEEN RUNNING T/O THE NIGHT ORDERED VIA EMAR. POTENTIAL D/C ON 05/28 AFTER 48 HR ADMINISTRATION OF HEPARIN PER MD ORDERS. ASSESSED PT FOR RISKS OF ANY IGNITION SOURCES WELL BEHAVIORS FOR INCREASED RISKS OF FIRE DANGER. PT EDUCATED ON COMMON SOURCES OF IGNITION WELL NEED TO KEEP A SAFE ENVIRONMENT. PT VOICED UNDERSTANDING. NO NEW ORDERS AT THIS TIME, WILL REPORT TO ONCOMING RN. NADIA LACY OF THIS NOTE
[2023-05-27 08:33] VITALS: BP 126/70
[2023-05-27 16:56] VITALS: BP 130/74
--- NOTE | 2023-05-27 19:29 | NUR ---
ASSUMED CARE OF PT AT 0700 THIS AM. NO ACUTE CHANGES T/O SHIFT. PT CONTINUES TO HAVE GOOD DIURESIS RESULTS. DR ARMSTRONG IN TO SEE PT TODAY, INCREASED METOP DOSAGE, STARTED XARELTO AND DCd HEPARIN GTT. OVERALL PT IS DOING WELL AND IS HOPING TO BE DISCHARGED TOMORROW. PT IS ABLE TO USE CALL LIGHT FOR NEEDS. CALL LIGHT IN REACH. REPORT GIVEN TO TATA HOYT RN.
[2023-05-27 20:00] VITALS: BP 117/80
--- NOTE | 2023-05-28 01:08 | NUR ---
ASSUMPTION OF CARE AND TRANSFER NOTE THIS RN ASSUMED CARE OF PT AT 1900, PT AWAKE IN ROOM WATCHING TV. PT PLEASANT AND INTERACTIVE; RESPONDING TO QUESTIONS APPROPRIATELY. VSS. PT DENIES CP OR PRESSURE, DENIES SOB, PALPITATIONS AND DIZZINESS. HRR REMAINS AFIB IN 80'S. PT ON RA, SPO2 >96%. PT AMBULATING TO RESTROOM INDEPENDENTLY OR USING URINAL AT BEDSIDE. PT TOLERATING AMBULATING WELL. PT HAD NO EVENTS OVERNIGHT, PT RESTED WELL. PT TRANSFERRED TO SURGICAL FLOOR AT 0110. REPORT GIVEN TO YUMIKO CABRERA. PT STABLE LEFT VIA HOSPITAL BED W/PCT'S. PT BELONGINGS SENT WITH PT.
[2023-05-28 04:04] VITALS: BP 106/67
[2023-05-28 05:45] VITALS: BP 117/78
[2023-05-28 06:00] LABS: BASOPHILS ABSOLUTE AUTO 0.03 K/mm3 (0.00-0.23); BASOPHILS PERCENT AUTO 1 % (0-2); EOSINOPHILS ABSOLUTE AUTO 0.25 K/mm3 (0.00-0.68); EOSINOPHILS PERCENT AUTO 6 % (0-6); Hematocrit 36.8 % (37.0-53.0); Hemoglobin 12.1 g/dL (13.5-17.5); IMMATURE GRAN ABSOLUTE AUTO 0.01 K/mm3 (0.00-0.10); IMMATURE GRAN PERCENT AUTO 0 % (0-1); LYMPHOCYTES ABSOLUTE AUTO 1.61 K/mm3 (0.84-5.20); LYMPHOCYTES PERCENT AUTO 37 % (21-46); MONOCYTES PERCENT AUTO 16 % (4-13); Mean Corpuscular HGB 27.7 pg (26.0-34.0); Mean Corpuscular HGB Conc 32.9 g/dL (31.5-36.5); Mean Corpuscular Volume 84 fL (80-100); Mean Platelet Volume 9.8 fL (9.1-12.4); NEUTROPHILS ABSOLUTE AUTO 1.77 K/mm3 (1.96-9.15); NEUTROPHILS PERCENT AUTO 41 % (41-73); Platelet Count 234 K/mm3 (150-400); RDW Coefficient Variation 16.8 % (11.7-14.2); Red Blood Cell Count 4.37 M/mm3 (4.30-5.90); White Blood Cell Count 4.37 K/mm3 (4.00-11.30)
--- NOTE | 2023-05-28 06:02 | NUR ---
SHIFT SUMMARY PT WAS TRANSFERRED TO THE FLOOR FROM PCU AT 0209. PT HAS BEEN IN THE ER REPEATEDLY FOR GENERAL MALAISE AND NOT FEELING WELL. THIS VISIT, HE WAS FOUND TO HAVE A SUSTAINED HR IN THE 160'S WELL A-FIB W/RVR. PT'S MEDS HAVE BEEN ADJUSTED AND PT MAY DISCHARGE TODAY FOR HOME. TELE DESK REPORTS THE PT BEING IN A-FLUTTER, ON HIS ARRIVAL AND AT HIS 0400 VS CHECK. ALL VITAL SIGNS HAVE BEEN STABLE. PT IS A&O, ON RA, AND IS INDEPENDENT IN THE ROOM (HE STANDS WHEN USING THE URINAL). PT HAS SLEPT FOR MOST OF THE AM SINCE ARRIVING ON THE UNIT. BED IS IN LOWEST POSITION, CALL LIGHT IS WITHIN REACH.
[2023-05-28 06:18] LABS: Bun/Creatinine Ratio 16.7 (12.0-20.0); Calcium, Blood 8.9 mg/dL (8.5-10.1); Creatinine, Blood 1.08 mg/dL (0.60-1.20); Magnesium, Blood 1.9 mg/dL (1.6-2.4)
[2023-05-28 07:40] VITALS: BP 125/84
[2023-05-28] MEDS ORDERED: ASPI81CH PO (10:46)
[2023-05-28] MEDS ORDERED: METO100ER PO (10:46)
--- NOTE | 2023-05-28 14:43 | NUR ---
DISCHARGE SUMMARY S/P AFIB WITH RVR, A/OX4, VSS, TOLERATING PO, AMBULATING INDEPENDENTLY, DENIES PAIN, DENIES SOB, DENIES CHEST PAIN AND CHEST PRESSURE. IV ACCESS REMOVED PRIOR TO DISCHARGE. DISCUSSED DISCHARGE INSTRUCTIONS WITH HIM AND HIS NIECE INCLUDING HOME CARE, MEDICATIONS, AND FOLLOW UP INFORMATION. DISCUSSED HIM P[facility]. ESTEFANY ANSWERED REGARDING NEW AND STOPPED MEDICATIONS. PT ESCORTED OUT VIA WC TO PRIVATE AUT[employer] TO GO HOME.
== END 2023-05-28 14:15 | disposition home or self-care (01) | DRG 280 ==
LOC: ER 13:04 → PCU 16:35 → SURS 16:35 → PCU 17:51 → SURS 05-28 01:54
PROVIDERS: Family Medicine; Hospitalist; Student in an Organized Health Care Education/Training Program; ADMIT Internal Medicine
PROC: B24BZZZ Ultrasonography of Heart with Aorta (ICD-10-PCS; principal; 2023-05-25)
DX: I48.11 Longstanding persistent atrial fibrillation (principal); I21.4 Non-ST elevation (NSTEMI) myocardial infarction; I50.33 Acute on chronic diastolic (congestive) heart failure; I48.92 Unspecified atrial flutter; I35.0 Nonrheumatic aortic (valve) stenosis; I25.10 Atherosclerotic heart disease of native coronary artery without angina pectoris; J44.9 Chronic obstructive pulmonary disease, unspecified; I11.0 Hypertensive heart disease with heart failure; F32.A Depression, unspecified; E78.5 Hyperlipidemia, unspecified; G25.81 Restless legs syndrome; E11.42 Type 2 diabetes mellitus with diabetic polyneuropathy; N40.0 Benign prostatic hyperplasia without lower urinary tract symptoms; K21.9 Gastro-esophageal reflux disease without esophagitis; Z96.653 Presence of artificial knee joint, bilateral; Z96.642 Presence of left artificial hip joint; Z88.8 Allergy status to other drugs, medicaments and biological substances; Z88.5 Allergy status to narcotic agent; Z79.01 Long term (current) use of anticoagulants; Z85.46 Personal history of malignant neoplasm of prostate; Z95.1 Presence of aortocoronary bypass graft; Z87.891 Personal history of nicotine dependence
CPT/HCPCS: 36415; 80048; 80053; 82947; 83735; 84443; 84484; 85014; 85018; 85025; 85027; 85049; 85520; 85610; 85730; 93005; 93010; 93306; 94640; 94664; 94760; 96360-59; 99285-25; A9270; J1644; J1940; J7030

== ENCOUNTER 2023-06-22 11:51 | Emergency (ER) | payer OTHER ==
[~2023-06-22] VITALS: Ht 170.2 cm; Wt 69.4 kg
[~2023-06-22 11:51] MED LIST changes: +ASPI81CH PO; +DILT120ERA PO; +DILT60 PO; +METO100ER PO
[2023-06-22 12:24] LABS: BASOPHILS ABSOLUTE AUTO 0.05 K/mm3 (0.00-0.23); BASOPHILS PERCENT AUTO 1 % (0-2); EOSINOPHILS PERCENT AUTO 3 % (0-6); Hematocrit 34.6 % (37.0-53.0); Hemoglobin 11.2 g/dL (13.5-17.5); IMMATURE GRAN ABSOLUTE AUTO 0.01 K/mm3 (0.00-0.10); IMMATURE GRAN PERCENT AUTO 0 % (0-1); LYMPHOCYTES ABSOLUTE AUTO 1.78 K/mm3 (0.84-5.20); LYMPHOCYTES PERCENT AUTO 23 % (21-46); MONOCYTES ABSOLUTE AUTO 1.05 K/mm3 (0.16-1.47); MONOCYTES PERCENT AUTO 13 % (4-13); Mean Corpuscular HGB 27.7 pg (26.0-34.0); Mean Corpuscular HGB Conc 32.4 g/dL (31.5-36.5); Mean Corpuscular Volume 85 fL (80-100); Mean Platelet Volume 9.1 fL (9.1-12.4); NEUTROPHILS ABSOLUTE AUTO 4.79 K/mm3 (1.96-9.15); NEUTROPHILS PERCENT AUTO 61 % (41-73); Platelet Count 322 K/mm3 (150-400); RDW Coefficient Variation 15.5 % (11.7-14.2); RDW Standard Deviation 49.1 fL (35.1-46.3); Red Blood Cell Count 4.05 M/mm3 (4.30-5.90); White Blood Cell Count 7.88 K/mm3 (4.00-11.30)
[2023-06-22 12:45] LABS: Albumin, Blood 3.4 g/dL (3.4-5.0); Albumin/Globulin Ratio 0.8 (0.8-1.8); Bilirubin, Total 0.3 mg/dL (0.1-1.0); Bun/Creatinine Ratio 12.9 (12.0-20.0); Calcium, Blood 9.2 mg/dL (8.5-10.1); Creatinine, Blood 0.93 mg/dL (0.60-1.20); Globulin, Blood 4.5 g/dL (2.2-4.0); Potassium, Blood 4.1 mmol/L (3.5-5.5); Total Protein, Blood 7.9 g/dL (6.4-8.2)
[2023-06-22 17:00] VITALS: BP 125/92
== END 2023-06-22 17:19 | disposition home or self-care (01) ==
LOC: ER 11:51
PROVIDERS: Emergency Medicine
DX: I48.92 Unspecified atrial flutter (principal); I48.0 Paroxysmal atrial fibrillation; D64.9 Anemia, unspecified; I10 Essential (primary) hypertension; I25.10 Atherosclerotic heart disease of native coronary artery without angina pectoris; E11.42 Type 2 diabetes mellitus with diabetic polyneuropathy; E78.5 Hyperlipidemia, unspecified; Z79.01 Long term (current) use of anticoagulants; Z88.5 Allergy status to narcotic agent; Z88.6 Allergy status to analgesic agent; Z79.82 Long term (current) use of aspirin; Z79.899 Other long term (current) drug therapy
CPT/HCPCS: 80053; 83735; 84484; 85025; 92960; 93005; 93010; 99152; 99285-25

== ENCOUNTER 2024-04-25 11:15 | Inpatient (IN) | payer OTHER ==
[~2024-04-25] VITALS: Ht 170.2 cm; Wt 66.6 kg
[~2024-04-25 11:15] MED LIST changes: +ALBU90OI INH; -ATOR40TA PO; +CLOP75 PO; +LIPITOR80 MG PO; +NITR.4SL SL; +XARELTO15 MG PO; -XARELTO20 MG PO
[2024-04-25 12:09] LABS: BASOPHILS ABSOLUTE AUTO 0.02 K/mm3 (0.00-0.23); BASOPHILS PERCENT AUTO 0 % (0-2); EOSINOPHILS ABSOLUTE AUTO 0.07 K/mm3 (0.00-0.68); EOSINOPHILS PERCENT AUTO 1 % (0-6); Hematocrit 31.6 % (37.0-53.0); Hemoglobin 10.2 g/dL (13.5-17.5); IMMATURE GRAN ABSOLUTE AUTO 0.01 K/mm3 (0.00-0.10); IMMATURE GRAN PERCENT AUTO 0 % (0-1); LYMPHOCYTES PERCENT AUTO 13 % (21-46); MONOCYTES ABSOLUTE AUTO 0.54 K/mm3 (0.16-1.47); MONOCYTES PERCENT AUTO 10 % (4-13); Mean Corpuscular HGB 29.7 pg (26.0-34.0); Mean Corpuscular HGB Conc 32.3 g/dL (31.5-36.5); Mean Corpuscular Volume 92 fL (80-100); Mean Platelet Volume 10.4 fL (9.1-12.4); NEUTROPHILS PERCENT AUTO 74 % (41-73); Platelet Count 148 K/mm3 (150-400); RDW Coefficient Variation 14.1 % (11.7-14.2); RDW Standard Deviation 47.6 fL (35.1-46.3); Red Blood Cell Count 3.44 M/mm3 (4.30-5.90); White Blood Cell Count 5.24 K/mm3 (4.00-11.30)
[2024-04-25 12:39] LABS: Albumin, Blood 3.5 g/dL (3.4-5.0); Albumin/Globulin Ratio 0.9 (0.8-1.8); Bilirubin, Total 0.5 mg/dL (0.1-1.0); Bun/Creatinine Ratio 15.4 (12.0-20.0); Calcium, Blood 8.5 mg/dL (8.5-10.1); Creatinine, Blood 1.62 mg/dL (0.60-1.20); Globulin, Blood 3.8 g/dL (2.2-4.0); Potassium, Blood 4.2 mmol/L (3.5-5.5); Total Protein, Blood 7.3 g/dL (6.4-8.2)
[2024-04-25] MEDS ORDERED: ALFU10 PO (13:11)
[2024-04-25] MEDS ORDERED: CYCL10 PO (13:11)
[2024-04-25] MEDS ORDERED: FURO20 PO (13:13)
[2024-04-25] MEDS ORDERED: METO50ER PO (13:13)
[2024-04-25] MEDS ORDERED: Aspirin 325 MG Tab PO ONE ×2 (13:15→16:00)
[2024-04-25] MEDS ORDERED: FLU VACC TS2024-25(6MOS UP)/PF 45 MCG/0.5 ML SYRINGE IM SCH (15:40)
[2024-04-25] MEDS ORDERED: Nitroglycerin 0.4 MG SUBL SL PRN (15:45)
[2024-04-25] MEDS ORDERED: Albuterol 2.5 MG/3 ML VIAL INH PRN (15:50)
[2024-04-25 17:35] VITALS: BP 156/74
[2024-04-25 17:35] LABS: International Normalized Ratio 1.23
[2024-04-25 17:38] LABS: Anti-Xa UFH, PHA Monitoring >1.50 IU/mL
[2024-04-25] MEDS ORDERED: Dose Adjust by Pharmacy XX STA (18:52)
[2024-04-25] MEDS ORDERED: Heparin Sodium,Porcine/0.5 NS 500 ML IV SCH (20:00)
[2024-04-25] MEDS ORDERED: DULoxetine HCL 30 MG Cap DR PO SCH (21:00)
[2024-04-25] MEDS ORDERED: Gabapentin 300 MG Cap PO SCH (21:00)
[2024-04-25] MEDS ORDERED: dilTIAZem HCL 30 MG TAB PO SCH (21:00)
[2024-04-25] MEDS ORDERED: Atorvastatin 40 MG Tab PO SCH (21:00)
[2024-04-25 23:16] VITALS: BP 137/73
[2024-04-26] VITALS (12 sets, daily range): BP systolic 79–149; BP diastolic 51–95
[2024-04-26] MEDS ORDERED: Dose Adjust by Pharmacy XX STA ×2 (03:15→09:16)
[2024-04-26] MEDS ORDERED: Omeprazole 20 MG CapCR PO SCH (06:00)
--- NOTE | 2024-04-26 06:00 | NUR ---
Shift Summary- Patient alert and oriented x4, orthostatic VS completed at the start of my shift- patient did not appear symptomatic, (i.e. dizzy/lightheaded) and was able to lie, sit, and stand all without assistance or issue. VSS- though HR slightly elevated. Heparin gtt started per pharmacy at 15units, dose adjustment made around 0326 per pharmacy to 14units. Patient is on room air, HR is maintained anywhere from 90-low one teens at rest. Though when he gets up and ambulated to the restroom his HR jumps up and sustains into the 160's. Patient reports shortness of breath with activity as well. Tele-tech states rythym is RVR/flutter during the activity. Patient denies lightheadedness/dizziness but does endorse the SOB and needs time to recover and catch his breath, settle his HR (about 5+ minutes). Patient complains that he lost his hearing aid at some point during the day- all his linen was searched here, and it was not seen. Patient states he may have lost it prior to PCU arrival, and he is not entirely sure of what point during the day he lost it. He states this happened the last time he was hospitalized as well. No other needs at this time. DNR band applied. Powerglide in place in RUE- positional- tends to work best when arm is close to his body and not "fanned" out.
--- NOTE | 2024-04-26 08:48 | NUR ---
WE ARE UNABLE TO GET AHOLD OF THE PT'S HOSP, SO I CALLED DR. DURAN WHO IS CONSULTED FOR THIS PT. HE WAS NOTIFIED OF TACHYCARDIA AND HYPOTENSION. DR. DURAN STATED HE WILL BE ROUNDING ON THE PT SOON AND WE WILL WAIT UNTIL HE SEES THE PT UNLESS THE PT IS ASYMPTOMATIC.
--- NOTE | 2024-04-26 08:53 | NUR ---
DR. LAW, THE PT'S HOSP, CALLED AND WAS UPDATED ON TACHYCARDIA AND HYPOTENSION. HE WAS NOTIFIED THAT DR. DURAN WAS CALLED AND TOLD WHAT WAS SAID. SEE PREVIOUS NOTE. DR. LAW WANTS A 500CC BOLUS RIGHT NOW. SEE NOTES FOR UPDATES.
[2024-04-26] MEDS ORDERED: NS 500 ML IV ONE (08:55)
[2024-04-26] MEDS ORDERED: Furosemide 20 MG Tab PO SCH (09:00)
[2024-04-26] MEDS ORDERED: Metoprolol Succinate 50 MG TABCR PO SCH (09:00)
[2024-04-26] MEDS ORDERED: Clopidogrel Bisulfate 75 MG Tab PO SCH (09:00)
[2024-04-26] MEDS ORDERED: Amiodarone HCl 200 MG Tab PO SCH (09:40)
--- NOTE | 2024-04-26 11:43 | NUR ---
PT'S DECLAN RAMOS WAS CALLED ABOUT A MEDICATION LIST AND SHE STATED SHE WOULD BRING IN A LIST FO JOSÉ MANUEL TO FINISH THE PT'S MED REC.
--- NOTE | 2024-04-26 12:49 | NUR ---
THE PT IS HAVING SWELLING AND TENDERNESS IN HIS HALLE. DR. LAW NOTIFIED AND ORDERED AN ULTRASOUND.
[2024-04-26] MEDS ORDERED: CLOP75 PO (16:18)
[2024-04-26] MEDS ORDERED: METO25ER PO (16:19)
[2024-04-26] MEDS ORDERED: C COMPLEX1000 M1 PO (16:23)
[2024-04-26] MEDS ORDERED: Calcium Carbon500 MG PO (16:24)
[2024-04-26] MEDS ORDERED: VITAMIN D310 MC4 PO (16:30)
--- NOTE | 2024-04-26 16:56 | NUR ---
DR. ALW NOTIFIED THAT THE PT'S MEDICATION LIST WAS UPDATED AND THAT THERE WERE SOME DIFFERENCES IN HOME AND HOSP ORDERS.
--- NOTE | 2024-04-26 17:05 | NUR ---
SHIFT SUMMARY THE PT IS A&OX4, CALLS APPROPRAITELY, MAKES HIS NEEDS KNOWN, BUT IS PAUMA. HE IS A 1P ASSIST W/ FWW. AFTER THE PT STARTED PO AMIO, THE PT'S HR HAS BEEN IMPROVED W/ HR 70'S-100'S, BTU HE REMAINS IN AFLUTTER; BP STABLE. HE REMAINS ON RA AND SP02 >93%. THE PT HAS DENIED ANY DIZZINESS, HEADACHE, LIGHT HEADEDNESS, OR ANY FEELINGS THAT HE MAY PASS OUT. THE PT'S HEPARIN GTT WAS D/C'D AND HE IS BEING RESTARTED ON XERELTO. CARDIOLOGY STATED THAT THERE IS NO PLAN FOR ANY PROCEDURE AT THIS TIME. THE PT'S NEICE CAME TO BEDSIDE AND WAS UPDATED ON CARE. SEE NOTES FOR ANY UPDATES.
[2024-04-26] MEDS ORDERED: Calcium Carbonate 500 MG Tab Chew PO PRN (17:45)
[2024-04-26] MEDS ORDERED: Ipratropium/Albuterol SulF 2.5-0.5MG/3 ML Amp INH SCH (17:55)
[2024-04-26] MEDS ORDERED: Rivaroxaban 10 MG Tab PO SCH (18:00)
[2024-04-26] MEDS ORDERED: Ascorbic Acid 1000 MG Tab PO SCH (21:00)
[2024-04-27 00:30] VITALS: BP 107/68
[2024-04-27 05:31] VITALS: BP 105/78
[2024-04-27 06:25] LABS: Hematocrit 31.2 % (37.0-53.0); Hemoglobin 10.6 g/dL (13.5-17.5); Mean Corpuscular HGB 29.6 pg (26.0-34.0); Mean Platelet Volume 10.5 fL (9.1-12.4); Platelet Count 197 K/mm3 (150-400); RDW Coefficient Variation 14.2 % (11.7-14.2); RDW Standard Deviation 45.3 fL (35.1-46.3); Red Blood Cell Count 3.58 M/mm3 (4.30-5.90); White Blood Cell Count 4.93 K/mm3 (4.00-11.30)
[2024-04-27 06:43] LABS: Bun/Creatinine Ratio 14.5 (12.0-20.0); Calcium, Blood 8.7 mg/dL (8.5-10.1); Creatinine, Blood 1.65 mg/dL (0.60-1.20); Magnesium, Blood 1.7 mg/dL (1.6-2.4); Potassium, Blood 3.9 mmol/L (3.5-5.5)
[2024-04-27 06:59] LABS: Mean Corpuscular Volume 87 fL (80-100)
--- NOTE | 2024-04-27 07:21 | NUR ---
NOC SHIFT SUMMARY PT ORIENTED X4, AFIB/FLUT ON TELEMETRY. HR INCREASED TO 160S AROUND 1999, NOTIFIED DR. DEVONTE COHEN MD OF THIS AND PT DECREASED TO 130S. ASYMPTOMATIC, PER DR. COHEN GIVE PO AMIO AND WATCH BP. PT HR CONTINUED TO TREND DOWN OVERNIGHT AND PT REMAINED ASYMPTOMATIC.
[2024-04-27] MEDS ORDERED: Mag Sulfate 1 GM/D5% 100ML 100 ML IV STA (08:14)
[2024-04-27 08:23] VITALS: BP 133/59
[2024-04-27] MEDS ORDERED: Cholecalciferol 1000 Unit Tablet (=25MCG) PO SCH (09:00)
[2024-04-27] MEDS ORDERED: Empagliflozin 10 MG TAB PO SCH (09:00)
--- NOTE | 2024-04-27 09:46 | NUR ---
ASSUMPTION OF CARE PT RESTING IN HOSPITAL BED, AROUSES EASILY TO VERBAL STIMULI, ORIENTED X4. MONITOR CONTINUES TO SHOW AFIB, HR 80'S WHILE AT REST, INCREASES TO 130S WITH ACTIVITY. DR LAW TO ROOM FOR AM ROUNDS. PT OKAY FOR ACTIVITY TOLERATED. PT AMBULATORY TO RESTROOM AND TOLERATED WELL. DENIES CHEST PAIN, MILD DYSPNEA WITH EXERTION. PT DENIES GI/ ISSUES.
[2024-04-27 12:42] VITALS: BP 138/75
--- NOTE | 2024-04-27 13:50 | NUR ---
CALL TO DR LAW REGARDING POSSIBLE STATUS CHANGE TO MED WITH TELE. PTS VITALS HAVE BEEN STABLE THROUGHOUT DAY, PT BECOMES MILDLY TACHYCARDIC WITH ACTIVITY BUT REMAINS ASYMPTOMATIC AND HR NORMALIZES QUICKLY. PT DENIES CHEST PAIN THROUGHOUT SHIFT. ORDER TO CHANGE STATUS TO MEDICAL WITH TELEMETRY.
[2024-04-27 15:41] VITALS: BP 124/79
[2024-04-27] MEDS ORDERED: Tamsulosin HCl 0.4 MG Cap PO SCH (16:00)
[2024-04-27 19:32] VITALS: BP 134/110
[2024-04-28 04:10] VITALS: BP 115/59
--- NOTE | 2024-04-28 04:22 | NUR ---
END OF SHIFT SUMMARY: Patient in controlled Afib all night, VSS on RA. A&Ox4, denies pain. Getting OOB with SBA to BR. R arm powerglide WNL. Tolerating a heart healthy diet, denies dizziness, denies chest pain/pressure. Possibly DC home today?
[2024-04-28] MEDS ORDERED: NIZORAL A-D125 ML TOP (06:08)
[2024-04-28 07:50] VITALS: BP 86/53
[2024-04-28 08:14] LABS: Bun/Creatinine Ratio 17.5 (12.0-20.0); Creatinine, Blood 1.37 mg/dL (0.60-1.20)
[2024-04-28 09:37] VITALS: BP 120/52
[2024-04-28] MEDS ORDERED: Amiodarone HCl200 MG PO (10:29)
[2024-04-28] MEDS ORDERED: JARDIANCE10 MG PO (10:30)
--- NOTE | 2024-04-28 13:10 | NUR ---
DISCHARGE: PT HAS BEEN CLEARED FOR DISCHARGE HOME. PT DRESSES SELF. ALL IV ACCESS DC'd WNL. PT's NEPHEW TO BEDSIDE. DC PAPERWORK AND INSTRUCTIONS PROVIDED TO PT AND FAMILY. ALL QUESTIONS HAVE BEEN ANSWERED. PT ASSISTED FROM UNIT VIA W/C W/OUT INCIDENT.
[2024-05-01] MEDS ORDERED: Amiodarone HCl 200 MG Tab PO SCH (09:00)
[2024-05-06] MEDS ORDERED: Amiodarone HCl 200 MG Tab PO SCH (09:00)
== END 2024-04-28 12:15 | disposition home or self-care (01) | DRG 281 ==
LOC: ER 11:15 → PCU 11:16
PROVIDERS: Emergency Medicine; Internal Medicine; ADMIT Family Medicine
DX: I48.19 Other persistent atrial fibrillation (principal); N17.9 Acute kidney failure, unspecified; I21.A1 Myocardial infarction type 2; Z66 Do not resuscitate; I73.9 Peripheral vascular disease, unspecified; E78.5 Hyperlipidemia, unspecified; I10 Essential (primary) hypertension; K21.9 Gastro-esophageal reflux disease without esophagitis; G62.9 Polyneuropathy, unspecified; G25.81 Restless legs syndrome; D64.9 Anemia, unspecified; M19.90 Unspecified osteoarthritis, unspecified site; Z96.642 Presence of left artificial hip joint; Z96.653 Presence of artificial knee joint, bilateral; Z95.1 Presence of aortocoronary bypass graft; Z95.2 Presence of prosthetic heart valve; Z88.8 Allergy status to other drugs, medicaments and biological substances; Z79.02 Long term (current) use of antithrombotics/antiplatelets; Z79.01 Long term (current) use of anticoagulants; Z79.899 Other long term (current) drug therapy
CPT/HCPCS: 71045; 71260; 80048; 80053; 83735; 84484; 85025; 85027; 85520; 85610; 85730; 93005; 93010; 93306; 93971; 94640; 94664; 94760; 94762; 96374; 96376; 99285-25; A9270; C1751; G0378; J1644; J3475; J7040; Q9967

== ENCOUNTER 2024-08-27 18:33 | Emergency (ER) | payer OTHER ==
[~2024-08-27] VITALS: Ht 170.2 cm; Wt 66.7 kg
[~2024-08-27 18:33] MED LIST changes: +ALFU10 PO; +Amiodarone HCl200 MG PO; +Calcium Carbon500 MG PO; +FURO20 PO; +JARDIANCE10 MG PO; +METO25ER PO; +METO50ER PO; +NIZORAL A-D125 ML TOP; +VITAMIN D310 MC4 PO
[2024-08-27 19:08] VITALS: BP 131/94
[2024-08-27 20:32] LABS: BASOPHILS ABSOLUTE AUTO 0.03 K/mm3 (0.00-0.23); BASOPHILS PERCENT AUTO 1 % (0-2); EOSINOPHILS ABSOLUTE AUTO 0.07 K/mm3 (0.00-0.68); EOSINOPHILS PERCENT AUTO 2 % (0-6); Hematocrit 38.6 % (37.0-53.0); Hemoglobin 13.3 g/dL (13.5-17.5); IMMATURE GRAN ABSOLUTE AUTO 0.04 K/mm3 (0.00-0.10); IMMATURE GRAN PERCENT AUTO 1 % (0-1); LYMPHOCYTES ABSOLUTE AUTO 1.44 K/mm3 (0.84-5.20); LYMPHOCYTES PERCENT AUTO 33 % (21-46); MONOCYTES PERCENT AUTO 14 % (4-13); Mean Corpuscular HGB Conc 34.5 g/dL (31.5-36.5); Mean Corpuscular Volume 87 fL (80-100); NEUTROPHILS ABSOLUTE AUTO 2.23 K/mm3 (1.96-9.15); NEUTROPHILS PERCENT AUTO 51 % (41-73); RDW Coefficient Variation 15.2 % (11.7-14.2); RDW Standard Deviation 49.1 fL (35.1-46.3); Red Blood Cell Count 4.43 M/mm3 (4.30-5.90); White Blood Cell Count 4.41 K/mm3 (4.00-11.30)
[2024-08-27 20:33] LABS: Mean Platelet Volume 11.8 fL (9.1-12.4); Platelet Count 159 K/mm3 (150-400)
[2024-08-27 20:43] LABS: Albumin, Blood 3.4 g/dL (3.4-5.0); Albumin/Globulin Ratio 0.7 (0.8-1.8); Bilirubin, Total 0.8 mg/dL (0.1-1.0); Bun/Creatinine Ratio 21.3 (12.0-20.0); Calcium, Blood 9.2 mg/dL (8.5-10.1); Creatinine, Blood 1.22 mg/dL (0.60-1.20); Globulin, Blood 4.7 g/dL (2.2-4.0); Potassium, Blood 5.4 mmol/L (3.5-5.5); Total Protein, Blood 8.1 g/dL (6.4-8.2)
[2024-08-27 20:56] LABS: International Normalized Ratio 1.22; Prothrombin Time Results 12.9 Sec (9.7-11.5)
== END 2024-08-27 21:14 | disposition home or self-care (01) ==
LOC: ER 18:33
PROVIDERS: Emergency Medicine
DX: I95.1 Orthostatic hypotension (principal); E86.0 Dehydration; R74.01 Elevation of levels of liver transaminase levels; I10 Essential (primary) hypertension; E11.42 Type 2 diabetes mellitus with diabetic polyneuropathy; I48.91 Unspecified atrial fibrillation; E78.5 Hyperlipidemia, unspecified; I25.10 Atherosclerotic heart disease of native coronary artery without angina pectoris; K21.9 Gastro-esophageal reflux disease without esophagitis; J44.9 Chronic obstructive pulmonary disease, unspecified; F32.A Depression, unspecified; Z95.1 Presence of aortocoronary bypass graft; Z88.8 Allergy status to other drugs, medicaments and biological substances; Z88.5 Allergy status to narcotic agent; Z79.01 Long term (current) use of anticoagulants; Z79.899 Other long term (current) drug therapy
CPT/HCPCS: 80053; 85025; 85610; 85730; 99284-25

== ENCOUNTER 2024-10-20 14:24 | Emergency (ER) | payer OTHER ==
[~2024-10-20] VITALS: Ht 170.2 cm; Wt 63.5 kg
[~2024-10-20 14:24] MED LIST changes: -VITAMIN D310 MC4 PO; +VITAMIN D5000 UNIT PO
[2024-10-20 14:27] VITALS: BP 148/137
[2024-10-20 14:47] LABS: BASOPHILS ABSOLUTE AUTO 0.03 K/mm3 (0.00-0.23); BASOPHILS PERCENT AUTO 1 % (0-2); EOSINOPHILS ABSOLUTE AUTO 0.16 K/mm3 (0.00-0.68); EOSINOPHILS PERCENT AUTO 4 % (0-6); Hematocrit 43.2 % (37.0-53.0); Hemoglobin 14.1 g/dL (13.5-17.5); IMMATURE GRAN ABSOLUTE AUTO 0.03 K/mm3 (0.00-0.10); IMMATURE GRAN PERCENT AUTO 1 % (0-1); LYMPHOCYTES ABSOLUTE AUTO 1.15 K/mm3 (0.84-5.20); LYMPHOCYTES PERCENT AUTO 28 % (21-46); MONOCYTES ABSOLUTE AUTO 0.48 K/mm3 (0.16-1.47); MONOCYTES PERCENT AUTO 12 % (4-13); Mean Corpuscular HGB 29.6 pg (26.0-34.0); Mean Corpuscular HGB Conc 32.6 g/dL (31.5-36.5); Mean Corpuscular Volume 91 fL (80-100); Mean Platelet Volume 9.6 fL (9.1-12.4); NEUTROPHILS ABSOLUTE AUTO 2.22 K/mm3 (1.96-9.15); NEUTROPHILS PERCENT AUTO 55 % (41-73); Platelet Count 226 K/mm3 (150-400); RDW Coefficient Variation 15.5 % (11.7-14.2); RDW Standard Deviation 51.3 fL (35.1-46.3); Red Blood Cell Count 4.76 M/mm3 (4.30-5.90); White Blood Cell Count 4.07 K/mm3 (4.00-11.30)
[2024-10-20 15:06] LABS: Albumin, Blood 3.4 g/dL (3.4-5.0); Albumin/Globulin Ratio 0.7 (0.8-1.8); Bilirubin, Total 0.7 mg/dL (0.1-1.0); Bun/Creatinine Ratio 24.4 (12.0-20.0); Calcium, Blood 9.3 mg/dL (8.5-10.1); Creatinine, Blood 1.19 mg/dL (0.60-1.20); Globulin, Blood 4.7 g/dL (2.2-4.0); Potassium, Blood 4.5 mmol/L (3.5-5.5); Total Protein, Blood 8.1 g/dL (6.4-8.2)
[2024-10-20] MEDS ORDERED: Morphine Sulfate 4 MG/1 ML Injection ONE (16:49)
[2024-10-20] MEDS ORDERED: OXAYDO5 M1 PO (16:53)
== END 2024-10-20 17:40 | disposition home or self-care (01) ==
LOC: ER 14:24
PROVIDERS: Student in an Organized Health Care Education/Training Program
DX: S42.212A Unspecified displaced fracture of surgical neck of left humerus, initial encounter for closed fracture (principal); E11.9 Type 2 diabetes mellitus without complications; I48.91 Unspecified atrial fibrillation; I10 Essential (primary) hypertension; E78.5 Hyperlipidemia, unspecified; I25.10 Atherosclerotic heart disease of native coronary artery without angina pectoris; J44.9 Chronic obstructive pulmonary disease, unspecified; K21.9 Gastro-esophageal reflux disease without esophagitis; Z95.1 Presence of aortocoronary bypass graft; Z95.2 Presence of prosthetic heart valve; Z88.8 Allergy status to other drugs, medicaments and biological substances; Z88.5 Allergy status to narcotic agent; Z79.01 Long term (current) use of anticoagulants; Z79.84 Long term (current) use of oral hypoglycemic drugs; Z79.899 Other long term (current) drug therapy; W10.9XXA Fall (on) (from) unspecified stairs and steps, initial encounter
CPT/HCPCS: 29105; 70450; 71045; 72125; 72170; 73030; 73060; 80053; 85025; 99285-25; J2270

== ENCOUNTER 2024-10-21 14:25 | Inpatient (IN) | payer OTHER ==
[~2024-10-21] VITALS: Ht 170.2 cm; Wt 66.1 kg
[~2024-10-21 14:25] MED LIST changes: +OXAYDO5 M1 PO
[2024-10-21] MEDS ORDERED: NS 1,000 ML IV ONE (15:10)
[2024-10-21] MEDS ORDERED: NS 1,000 ML IV SCH ×2 (15:35→17:35)
[2024-10-21 16:18] LABS: BASOPHILS ABSOLUTE AUTO 0.02 K/mm3 (0.00-0.23); BASOPHILS PERCENT AUTO 0 % (0-2); EOSINOPHILS ABSOLUTE AUTO 0.02 K/mm3 (0.00-0.68); EOSINOPHILS PERCENT AUTO 0 % (0-6); Hematocrit 30.3 % (37.0-53.0); IMMATURE GRAN ABSOLUTE AUTO 0.01 K/mm3 (0.00-0.10); IMMATURE GRAN PERCENT AUTO 0 % (0-1); LYMPHOCYTES ABSOLUTE AUTO 1.17 K/mm3 (0.84-5.20); LYMPHOCYTES PERCENT AUTO 17 % (21-46); MONOCYTES ABSOLUTE AUTO 1.18 K/mm3 (0.16-1.47); MONOCYTES PERCENT AUTO 17 % (4-13); Mean Corpuscular HGB 29.9 pg (26.0-34.0); Mean Corpuscular Volume 90 fL (80-100); Mean Platelet Volume 9.9 fL (9.1-12.4); NEUTROPHILS ABSOLUTE AUTO 4.44 K/mm3 (1.96-9.15); NEUTROPHILS PERCENT AUTO 65 % (41-73); Platelet Count 197 K/mm3 (150-400); RDW Coefficient Variation 15.6 % (11.7-14.2); RDW Standard Deviation 51.1 fL (35.1-46.3); Red Blood Cell Count 3.35 M/mm3 (4.30-5.90); White Blood Cell Count 6.84 K/mm3 (4.00-11.30)
[2024-10-21 16:51] LABS: Albumin, Blood 2.9 g/dL (3.4-5.0); Albumin/Globulin Ratio 0.8 (0.8-1.8); Bilirubin, Total 0.6 mg/dL (0.1-1.0); Bun/Creatinine Ratio 20.7 (12.0-20.0); Calcium, Blood 8.7 mg/dL (8.5-10.1); Creatinine, Blood 1.93 mg/dL (0.60-1.20); Globulin, Blood 3.6 g/dL (2.2-4.0); Potassium, Blood 3.9 mmol/L (3.5-5.5); Total Protein, Blood 6.5 g/dL (6.4-8.2)
[2024-10-21 17:11] LABS: Source, Urine Clean Catch
[2024-10-21 17:14] LABS: Appearance, Urine Clear (Clear); Bilirubin, Urine Neg (Neg); Blood, Urine Neg (Neg); Color, Urine Yellow (P-Yellow); Glucose Qualitative, Urine 4+ (Neg); Ketones, Urine Neg (Neg); Leukocyte Esterase, Urine Neg (Neg); Nitrite, Urine Neg (Neg); Protein, Urine Neg (Neg); Urobilinogen, Urine NORM (Normal)
[2024-10-21] MEDS ORDERED: FLU VACC TS2024-25(6MOS UP)/PF 45 MCG/0.5 ML SYRINGE IM SCH (17:35)
[2024-10-21] MEDS ORDERED: Ondansetron HCl 2 MG / ML 2ML Vial IV PRN (17:35)
[2024-10-21] MEDS ORDERED: Enoxaparin 30 MG/0.3 ML SYR SC SCH (18:00)
[2024-10-21 18:14] LABS: U Amphetamine Screen Not Detected; U Barbituate Screen Not Detected; U Benzodiazapine Screen Not Detected; U Buprenorphine Screen Not Detected; U Cannabinoids Screen Not Detected; U Cocaine Screen Not Detected; U Methadone Screen Not Detected; U Methamphetamine Screen Not Detected; U Opiates Screen DETECTED; U Oxycodone Screen DETECTED; U Phencyclidine Screen Not Detected
[2024-10-21] MEDS ORDERED: Acetaminophen 325 MG TABLET PO PRN (19:05)
[2024-10-21 19:45] LABS: Base Excess Venous -4.2 mmol/L; Bicarbonate Venous 21.2 mmol/L (24.0-30.0); PCO2 Venous 40.2 mmHg (38-42); pH Blood Venous 7.34 (7.34-7.37)
[2024-10-21 20:44] VITALS: BP 88/76
[2024-10-21 20:46] VITALS: BP 107/65
[2024-10-21] MEDS ORDERED: Amiodarone HCl 200 MG Tab PO SCH (23:45)
[2024-10-22] VITALS (9 sets, daily range): BP systolic 63–146; BP diastolic 38–88
[2024-10-22] MEDS ORDERED: Ipratropium/Albuterol SulF 2.5-0.5MG/3 ML Amp INH SCH ×2 (00:10→11:10)
[2024-10-22] MEDS ORDERED: Albuterol HFA200 ACT/6.7 GM INH INH PRN (00:10)
--- NOTE | 2024-10-22 03:12 | NUR ---
SHIFT SUMMARY PATIENT HAS BEEN SLEEPING INTERMITTANTLY THROUGHOUT THE NIGHT AND APPEARS TO BE SLEEPING COMFORTABLY AT THIS TIME NS IS INFUSING WITHOUT COMPLICATIONS. VITAL SIGNS HAVE BEEN STABLE. PATIENT HAS NOT BEEN DIZZY OR LIGHT HEADED. PATIENT HAS BEEN ORIENTED X4. HE HAS HIS CALL LIGHT WITHIN REACH AND HIS BED ALARM IS SET. SAFETY PRECAUTIONS ARE BEING MAINTAINED
[2024-10-22 05:52] LABS: BASOPHILS ABSOLUTE AUTO 0.01 K/mm3 (0.00-0.23); BASOPHILS PERCENT AUTO 0 % (0-2); EOSINOPHILS ABSOLUTE AUTO 0.15 K/mm3 (0.00-0.68); EOSINOPHILS PERCENT AUTO 3 % (0-6); Hematocrit 29.4 % (37.0-53.0); Hemoglobin 9.7 g/dL (13.5-17.5); IMMATURE GRAN ABSOLUTE AUTO 0.01 K/mm3 (0.00-0.10); IMMATURE GRAN PERCENT AUTO 0 % (0-1); LYMPHOCYTES ABSOLUTE AUTO 1.24 K/mm3 (0.84-5.20); LYMPHOCYTES PERCENT AUTO 21 % (21-46); MONOCYTES PERCENT AUTO 20 % (4-13); Mean Corpuscular HGB 29.4 pg (26.0-34.0); Mean Corpuscular Volume 89 fL (80-100); Mean Platelet Volume 9.8 fL (9.1-12.4); NEUTROPHILS ABSOLUTE AUTO 3.28 K/mm3 (1.96-9.15); NEUTROPHILS PERCENT AUTO 56 % (41-73); Platelet Count 173 K/mm3 (150-400); RDW Coefficient Variation 15.5 % (11.7-14.2); RDW Standard Deviation 51.3 fL (35.1-46.3); White Blood Cell Count 5.89 K/mm3 (4.00-11.30)
[2024-10-22] MEDS ORDERED: Omeprazole 20 MG CapCR PO SCH (06:00)
[2024-10-22 06:15] LABS: Albumin, Blood 2.8 g/dL (3.4-5.0); Albumin/Globulin Ratio 0.8 (0.8-1.8); Bilirubin, Total 0.8 mg/dL (0.1-1.0); Bun/Creatinine Ratio 23.8 (12.0-20.0); Creatinine, Blood 1.51 mg/dL (0.60-1.20); Globulin, Blood 3.5 g/dL (2.2-4.0); Potassium, Blood 3.8 mmol/L (3.5-5.5); Total Protein, Blood 6.3 g/dL (6.4-8.2)
[2024-10-22] MEDS ORDERED: Gabapentin 300 MG Cap PO SCH (09:00)
[2024-10-22] MEDS ORDERED: Metoprolol Succinate 25 MG TABCR PO SCH (09:00)
[2024-10-22] MEDS ORDERED: DULoxetine HCL 30 MG Cap DR PO SCH (09:00)
[2024-10-22] MEDS ORDERED: NS 1,000 ML IV SCH ×2 (09:55→12:00)
[2024-10-22] MEDS ORDERED: Magnesium Hydroxide Conc 10 ML UDC PO PRN (12:00)
--- NOTE | 2024-10-22 12:37 | NUR ---
NOTIFIED DR. LAW OF QTC PROLONGATION PER [employer] THIS AM. HE DISCONTINUED ZOFRAN PRN. CONTINUING TELE MONITORING. STOOL SOFTENERS STARTED, PATIENT REPORTS NO BM COUPLE DAYS. MONITORING URINE OUTPUT. ORTHOSTATIC VITALS DOCUMENTED AND POSITIVE. NS BOLUS AND THEN CONTINUING CONTINUOUS FLUIDS FOR AT LEAST ANOTHER DAY PER DR. LAW. LEFT ARM FRACTURED AND IN SLING FROM FALL/SYNCOPAL EPISODE AT HOME.
[2024-10-22] MEDS ORDERED: Rivaroxaban 10 MG Tab PO SCH (18:00)
--- NOTE | 2024-10-22 19:44 | NUR ---
CARE ASSUMED OF THIS PATIENT. REPORT RECEIVED FROM DAY RN. PATIENT IS COMFORT CARE. FAMILY IS PRESENT AT BEDSIDE. PATIENT APPEARS COMFORTABLE AT THIS TIME. CONTINUE CARE
--- NOTE | 2024-10-22 19:47 | NUR ---
CARE ASSUMED FOR THIS PATIENT. REPORT RECEIVED FROM DAY RN. PATIENT IS ALERT, OREIENTATED. ABLE TO MAKE NEEDS KNOWN. ABLE TO PARTICIPATE IN BEDSIDE REPORT. CONTINUE CARE
[2024-10-22] MEDS ORDERED: Docusate Sodium 100 MG Cap PO SCH (21:00)
[2024-10-23] VITALS (12 sets, daily range): BP systolic 99–160; BP diastolic 59–82
--- NOTE | 2024-10-23 02:53 | NUR ---
Patient put call light on to use urinal. Patient having increased pain with any movement making it hard to get OOB. Sling is on but not in place. Sling does not stay in place slides around easily. Patient states "I wish I had a cast on it!" Tylenol given for pain. Patient voided 300 ml. Post void scan 357. Patient states he does not want to try again to void. States he is comfortable.
--- NOTE | 2024-10-23 04:59 | NUR ---
Patient appeared to have slept most of night. Waking up once to void. Having increased pain on left arm with any movement. Needed assistance to sit up, help with his under garments due to the increased pain. Patient states "can you tell that doctor I would like a cast?" Spoke with charge nurse about concerns. Sling does not stay in place. Will update day RN on patient's concerns and speak with primary provider. Notes from ER Provider state to follow up as out patient. Tylenol given for pain. Continue Care.
[2024-10-23 05:56] LABS: Bun/Creatinine Ratio 19.3 (12.0-20.0); Calcium, Blood 8.2 mg/dL (8.5-10.1); Creatinine, Blood 1.19 mg/dL (0.60-1.20); Potassium, Blood 3.9 mmol/L (3.5-5.5)
[2024-10-23] MEDS ORDERED: TraMADol HCl 50 MG Tab PO ONE (06:00)
--- NOTE | 2024-10-23 06:06 | NUR ---
Went into patient's room to give his morning medications. Patients "there are ants on the ceiling!" Turned the lights on and explained to patient that this is probably the ceiling tiles with designs on them. Then patient states "oh well maybe it was my glasses."
[2024-10-23] MEDS ORDERED: HYDROcodone 5-APAP 325 TAB PO PRN (09:25)
[2024-10-23] MEDS ORDERED: NS 1,000 ML IV ONE (09:25)
--- NOTE | 2024-10-23 16:13 | NUR ---
NO ACUTE CHANGES THIS SHIFT. PT IS ALERT AND ORIENTED X4, ABLE TO EXPRESS NEEDS. ORTHO CONSULT IN. PT TREATED FOR PAIN IN LUE AND BACK. PT REPORTS PAIN WORSENS WITH MOVEMENT. SBA TO BSC. ORTHOSTATIC HYPTENSION.
[2024-10-24] VITALS (7 sets, daily range): BP systolic 112–154; BP diastolic 58–94
--- NOTE | 2024-10-24 06:56 | NUR ---
SHIFT SUMMARY PT LYING IN BED SLEEPING AT START OF SHIFT. PT ADMITS TO FEELING SLEEPY, BUT WAKES EASILY FOR MEDICATION ADMINISTRATION AND ROUNDING. PT MEDICATED FOR PAIN PER EMAR. REPOSITIONED IN BED AND IS NOW SLEEPING COMFORTABLY. PT SLEPT THROUGH THE REST OF THE SHIFT WAKING FOR MEDICATION PASSES AND TO VOID.
[2024-10-24] MEDS ORDERED: Fludrocortisone Acetate 0.1 MG Tab PO SCH (11:00)
[2024-10-24] MEDS ORDERED: OXAYDO5 M2 PO (14:52)
--- NOTE | 2024-10-24 17:33 | NUR ---
NO ACUTE CHANGES THIS SHIFT. PT IS ALERT AND ORIENTED X4, CONFUSED AT TIMES, EASILY REDIRECTABLE. CALLS APPROPRIATELY, SBA TO BSC. PT/OT WITH PT TODAY. PER THERAPY, PT DID WELL. TREATED PAIN PER EMAR. PER DR. MATHEWS, OK FOR PT TO REMOVE SLING SLING IS MEANT FOR COMFORT.
[2024-10-25 00:55] VITALS: BP 134/79
[2024-10-25 04:44] VITALS: BP 159/99
[2024-10-25 07:04] VITALS: BP 155/94
--- NOTE | 2024-10-25 08:14 | NUR ---
SHIFT SUMMARY AT START OF SHIFT, PT IN HIS ROOM WITH RT AT BEDSIDE. BREATHING TX ADMINISTERED BY RT. PT EXPRESSED RELIEF PER REPORT HE DOES NOT NEED TO WEAR HIS SLING THROUGHOUT THE DAY, JUST WHILE SLEEPING FOR SUPPORT. PT WOKE APPROX 0230 NEEDED TO USE BATHROOM. PT AMBULATED TO [facility]. HE IS STILL IN A LOT OF PAIN IN HIS SHOULDER WHENEVER IT IS MOVED. UPON MOVEMENT, HIS PAIN CLIMBS TO 8/10 ON PAIN SCALE. PT MEDICATED PER EMAR. PT HAS BEEN SLEEPING OFF AND ON THROUGH MOST OF THE NIGHT. PT WOKE TO VOID AND WAS IN A PLEASANT MOOD. STATED PAIN LEVEL IS 0/10, AND HE IS FEELING A LOT BETTER.
[2024-10-25] MEDS ORDERED: Metoprolol Succinate 25 MG TABCR PO SCH (09:00)
[2024-10-25 09:34] VITALS: BP 158/91
[2024-10-25 09:35] VITALS: BP 135/86
[2024-10-25 09:36] VITALS: BP 138/67
[2024-10-25] MEDS ORDERED: DOCU100 PO (10:25)
[2024-10-25] MEDS ORDERED: FLUDROCORTISON0.1 M1 PO (10:26)
[2024-10-25] MEDS ORDERED: Norco 5-325 Ta1 EACH PO (10:26)
[2024-10-25] MEDS ORDERED: DULCOLAX400 MG/5 M PO (10:28)
--- NOTE | 2024-10-25 12:04 | NUR ---
DISCHARGE NOTE: PATIENT'S IV AND TELE REMOVED, PATIENT NOTIFIED FAMILY OF DISCHARGE AND THEY ARRIVED WITH CLOTHES; OCCUPATIONAL THERAPY ASSISTED WITH THE PATIENT GETTING DRESSED. PATIENT COLLECTED BELONGINGS, TRANSPORTED INTO WHEELCHAIR, PAPERWORK GIVEN TO MEDICAL TRANSPORTER. NO SIGNS OR SYMPTOMS OF DISTRESS WITH DISCHARGE.
== END 2024-10-25 11:58 | DRG 683 ==
LOC: ER 14:25 → ERHOLD 14:56 → MEDS 14:56 → ENPENDDIS 10-25 10:28 → MEDS 10-25 11:58
PROVIDERS: Emergency Medicine; Internal Medicine; ADMIT Internal Medicine
DX: N17.9 Acute kidney failure, unspecified (principal); S42.202A Unspecified fracture of upper end of left humerus, initial encounter for closed fracture; I95.1 Orthostatic hypotension; I48.0 Paroxysmal atrial fibrillation; R29.6 Repeated falls; I25.10 Atherosclerotic heart disease of native coronary artery without angina pectoris; I35.0 Nonrheumatic aortic (valve) stenosis; E78.00 Pure hypercholesterolemia, unspecified; M19.90 Unspecified osteoarthritis, unspecified site; I45.10 Unspecified right bundle-branch block; F32.A Depression, unspecified; K21.9 Gastro-esophageal reflux disease without esophagitis; N40.0 Benign prostatic hyperplasia without lower urinary tract symptoms; I10 Essential (primary) hypertension; W18.30XA Fall on same level, unspecified, initial encounter; J44.9 Chronic obstructive pulmonary disease, unspecified; Z79.899 Other long term (current) drug therapy; Z88.8 Allergy status to other drugs, medicaments and biological substances; Z88.5 Allergy status to narcotic agent; N18.2 Chronic kidney disease, stage 2 (mild); E11.22 Type 2 diabetes mellitus with diabetic chronic kidney disease; Z95.1 Presence of aortocoronary bypass graft; Z96.653 Presence of artificial knee joint, bilateral; Z98.890 Other specified postprocedural states; Z79.01 Long term (current) use of anticoagulants
CPT/HCPCS: 36415; 70450; 72100; 80048; 80053; 81003; 82803; 83880; 84484; 85025; 93005; 93010; 94640; 94664; 94760; 96360; 96361; 97110; 97116; 97161; 97165; 97530; 97535; 99285-25; A9270; G0378; J1650; J7030

== ENCOUNTER 2024-10-26 22:14 | Emergency (ER) | payer OTHER ==
[~2024-10-26] VITALS: Wt 68.0 kg
[~2024-10-26 22:14] MED LIST changes: +DOCU100 PO; +DULCOLAX400 MG/5 M PO; +FLUDROCORTISON0.1 M1 PO; +Norco 5-325 Ta1 EACH PO; +OXAYDO5 M2 PO
[2024-10-26 23:01] LABS: BASOPHILS ABSOLUTE AUTO 0.03 K/mm3 (0.00-0.23); BASOPHILS PERCENT AUTO 1 % (0-2); EOSINOPHILS ABSOLUTE AUTO 0.03 K/mm3 (0.00-0.68); EOSINOPHILS PERCENT AUTO 1 % (0-6); Hemoglobin 10.9 g/dL (13.5-17.5); IMMATURE GRAN ABSOLUTE AUTO 0.02 K/mm3 (0.00-0.10); IMMATURE GRAN PERCENT AUTO 0 % (0-1); LYMPHOCYTES ABSOLUTE AUTO 0.73 K/mm3 (0.84-5.20); LYMPHOCYTES PERCENT AUTO 12 % (21-46); MONOCYTES ABSOLUTE AUTO 0.85 K/mm3 (0.16-1.47); MONOCYTES PERCENT AUTO 14 % (4-13); Mean Corpuscular HGB Conc 34.1 g/dL (31.5-36.5); Mean Corpuscular Volume 88 fL (80-100); Mean Platelet Volume 9.6 fL (9.1-12.4); NEUTROPHILS ABSOLUTE AUTO 4.64 K/mm3 (1.96-9.15); NEUTROPHILS PERCENT AUTO 74 % (41-73); Platelet Count 282 K/mm3 (150-400); RDW Coefficient Variation 15.5 % (11.7-14.2); RDW Standard Deviation 49.7 fL (35.1-46.3); Red Blood Cell Count 3.63 M/mm3 (4.30-5.90)
[2024-10-26 23:27] LABS: Albumin/Globulin Ratio 0.7 (0.8-1.8); Bilirubin, Total 1.5 mg/dL (0.1-1.0); Bun/Creatinine Ratio 17.3 (12.0-20.0); Calcium, Blood 8.8 mg/dL (8.5-10.1); Creatinine, Blood 0.87 mg/dL (0.60-1.20); Globulin, Blood 4.3 g/dL (2.2-4.0); Potassium, Blood 4.2 mmol/L (3.5-5.5); Total Protein, Blood 7.3 g/dL (6.4-8.2)
[2024-10-27 00:02] LABS: Source, Urine Voided
[2024-10-27 00:05] LABS: Bilirubin, Urine Neg (Neg); Blood, Urine 4+ (Neg); Glucose Qualitative, Urine 4+ (Neg); Ketones, Urine 3+ (Neg); Leukocyte Esterase, Urine Neg (Neg); Nitrite, Urine Neg (Neg); Protein, Urine 2+ (Neg); Urobilinogen, Urine 2+ (Normal)
[2024-10-27 00:10] LABS: Appearance, Urine Clear (Clear); Color, Urine Yellow (P-Yellow)
[2024-10-27 00:41] LABS: Bacteria Not Seen /hpf; Squamous Epithelial Cells Not Seen /hpf (Few); White Blood Cells, Urine Not Seen /hpf (0-5)
[2024-10-27 01:00] VITALS: BP 165/106
[2024-10-27] MEDS ORDERED: NS 1,000 ML IV SCH (01:05)
== END 2024-10-27 07:31 | disposition home or self-care (01) ==
LOC: ER 22:14
PROVIDERS: Emergency Medicine
DX: E86.0 Dehydration (principal); R11.2 Nausea with vomiting, unspecified; R10.9 Unspecified abdominal pain; I48.91 Unspecified atrial fibrillation; I10 Essential (primary) hypertension; E78.5 Hyperlipidemia, unspecified; K21.9 Gastro-esophageal reflux disease without esophagitis; J44.9 Chronic obstructive pulmonary disease, unspecified; E11.42 Type 2 diabetes mellitus with diabetic polyneuropathy; Z79.899 Other long term (current) drug therapy; Z88.5 Allergy status to narcotic agent; Z88.8 Allergy status to other drugs, medicaments and biological substances
CPT/HCPCS: 36415; 71250; 74176; 80053; 81001; 82550; 83605; 83690; 84484; 85025; 93005; 93010; 96360-59; 99285-25; J7030

== ENCOUNTER 2025-07-02 15:39 | Inpatient (IN) | payer OTHER ==
[~2025-07-02] VITALS: Ht 172.7 cm; Wt 58.4 kg
[2025-07-02] MEDS ORDERED: NS 500 ML IV SCH (17:55)
[2025-07-02] MEDS ORDERED: XARELTO20 MG PO (18:13)
[2025-07-02] MEDS ORDERED: CLOP75 PO (18:14)
[2025-07-02 19:20] LABS: BASOPHILS ABSOLUTE AUTO 0.02 K/mm3 (0.00-0.23); BASOPHILS PERCENT AUTO 0 % (0-2); EOSINOPHILS ABSOLUTE AUTO 0.05 K/mm3 (0.00-0.68); EOSINOPHILS PERCENT AUTO 1 % (0-6); Hematocrit 32.9 % (37.0-53.0); Hemoglobin 11.1 g/dL (13.5-17.5); IMMATURE GRAN ABSOLUTE AUTO 0.03 K/mm3 (0.00-0.10); IMMATURE GRAN PERCENT AUTO 1 % (0-1); LYMPHOCYTES ABSOLUTE AUTO 1.62 K/mm3 (0.84-5.20); LYMPHOCYTES PERCENT AUTO 27 % (21-46); MONOCYTES ABSOLUTE AUTO 0.85 K/mm3 (0.16-1.47); MONOCYTES PERCENT AUTO 14 % (4-13); Mean Corpuscular HGB Conc 33.7 g/dL (31.5-36.5); Mean Corpuscular Volume 90 fL (80-100); NEUTROPHILS ABSOLUTE AUTO 3.51 K/mm3 (1.96-9.15); NEUTROPHILS PERCENT AUTO 58 % (41-73); NRBC ABSOLUTE 0.00 K/mm3 (0.00-0.02); NRBC Auto 0.0 /100 WBC (0.0-0.2); Platelet Count 202 K/mm3 (150-400); RDW Coefficient Variation 14.5 % (11.7-14.2); RDW Standard Deviation 47.8 fL (35.1-46.3)
[2025-07-02 19:36] LABS: Alanine Aminotransfer (ALT/SGP 19.0 U/L (12-78); Albumin, Blood 3.3 g/dL (3.4-5.0); Albumin/Globulin Ratio 0.8 (0.8-1.8); Anion Gap 6.0 mmol/L (3-11); Aspartate Aminotrans (AST/SGOT 17.0 U/L (12-37); Bilirubin, Total 1.2 mg/dL (0.1-1.0); Blood Urea Nitrogen 22.0 mg/dL (8-24); CO2, Blood 27.0 mmol/L (21-32); Calcium, Blood 8.9 mg/dL (8.5-10.1); Chloride, Blood 105.0 mmol/L (98-108); Creatinine, Blood 1.14 mg/dL (0.60-1.20); Globulin, Blood 3.9 g/dL (2.2-4.0); Glucose, Blood 102.0 mg/dL (70-99); Magnesium, Blood 1.9 mg/dL (1.6-2.4); Potassium, Blood 3.7 mmol/L (3.5-5.5); Sodium, Blood 134.0 mmol/L (136-145); Total Protein, Blood 7.2 g/dL (6.4-8.2)
[2025-07-02] MEDS ORDERED: Ondansetron HCl 2 MG / ML 2ML Vial IV PRN (22:20)
[2025-07-02] MEDS ORDERED: FLU VACC TS2025(65UP)/MF59C/PF 45 MCG/0.5 ML SYRINGE IM SCH (22:25)
[2025-07-02] MEDS ORDERED: NS 1,000 ML IV SCH (23:00)
[2025-07-02 23:21] VITALS: BP 112/76
[2025-07-03 02:37] VITALS: BP 140/77
[2025-07-03 04:58] LABS: BASOPHILS ABSOLUTE AUTO 0.02 K/mm3 (0.00-0.23); BASOPHILS PERCENT AUTO 0 % (0-2); EOSINOPHILS ABSOLUTE AUTO 0.12 K/mm3 (0.00-0.68); EOSINOPHILS PERCENT AUTO 2 % (0-6); Hematocrit 28.1 % (37.0-53.0); Hemoglobin 9.5 g/dL (13.5-17.5); IMMATURE GRAN ABSOLUTE AUTO 0.02 K/mm3 (0.00-0.10); IMMATURE GRAN PERCENT AUTO 0 % (0-1); LYMPHOCYTES ABSOLUTE AUTO 2.12 K/mm3 (0.84-5.20); LYMPHOCYTES PERCENT AUTO 37 % (21-46); MONOCYTES ABSOLUTE AUTO 0.93 K/mm3 (0.16-1.47); MONOCYTES PERCENT AUTO 16 % (4-13); Mean Corpuscular HGB Conc 33.8 g/dL (31.5-36.5); Mean Corpuscular Volume 91 fL (80-100); NEUTROPHILS ABSOLUTE AUTO 2.56 K/mm3 (1.96-9.15); NEUTROPHILS PERCENT AUTO 45 % (41-73); NRBC ABSOLUTE 0.00 K/mm3 (0.00-0.02); NRBC Auto 0.0 /100 WBC (0.0-0.2); Platelet Count 179 K/mm3 (150-400); RDW Coefficient Variation 14.6 % (11.7-14.2); RDW Standard Deviation 48.3 fL (35.1-46.3)
[2025-07-03 05:25] LABS: Alanine Aminotransfer (ALT/SGP 15.0 U/L (12-78); Albumin, Blood 2.7 g/dL (3.4-5.0); Albumin/Globulin Ratio 0.8 (0.8-1.8); Anion Gap 10.0 mmol/L (3-11); Aspartate Aminotrans (AST/SGOT 16.0 U/L (12-37); Bilirubin, Total 0.8 mg/dL (0.1-1.0); Blood Urea Nitrogen 24.0 mg/dL (8-24); CO2, Blood 22.0 mmol/L (21-32); Calcium, Blood 8.3 mg/dL (8.5-10.1); Chloride, Blood 107.0 mmol/L (98-108); Creatinine, Blood 1.03 mg/dL (0.60-1.20); Globulin, Blood 3.3 g/dL (2.2-4.0); Glucose, Blood 95.0 mg/dL (70-99); Magnesium, Blood 1.9 mg/dL (1.6-2.4); Potassium, Blood 3.7 mmol/L (3.5-5.5); Sodium, Blood 135.0 mmol/L (136-145); Thyroid Stimulating Hormone 1.83 uIU/mL (0.360-4.800); Total Protein, Blood 6.0 g/dL (6.4-8.2)
--- NOTE | 2025-07-03 06:15 | NUR ---
ASSUMED CARE AT 2320. A/Ox4, PLEASANT. VSS ON RA. AFIB RHYTHM ON TELE. SKIN TEAR AT L BICEP WITH CONTINUED BLEEDING; REDRESSED X 2 DUE TO SATURAION. PT DENIES PAIN, SOB, NAUSEA. UP TO RESTROOM WITH 1P ASSIST; INCREASED WORK OF BREATHING NOTED WITH AMBULATION. PT DENIES LIGHTHEADEDNESS. USES CANE AT BASELINE. MINIMAL SLEEP OVERNIGHT; PT REPORTS HE GENERALLY DOESN'T GO TO SLEEP UNTIL ABOUT 0200. PT REPORTS CHRONIC CONSTIPATION. NS RUNNING 100 ML/HR. SAFETY PRECAUTIONS IN PLACE, CALL LIGHT IN REACH. PT CALLS APPROPRIATELY.
[2025-07-03 07:56] VITALS: BP 136/88
--- NOTE | 2025-07-03 09:00 | NUR ---
pt laying in bed awake a/ox4, pleasant and cooperative with care, follows commands well, denies any pain or n/v, states he had a good night, lungs are clear t/o, resp even and unlabored, no cough noted, on r/a, hrr, no edema noted, ppp+1, cap refill <3 sec, vs stable, afebrile, piv to rac site is clear and patent, btx4, abd flat soft nontender, voids without diff, getting up to bathroom without diff, skin has dressing to right foot, Dr. Hartley was in early and changed dressing, karina ortiz, call light in reach.
--- NOTE | 2025-07-03 09:00 | NUR ---
pt laying in bed awake a/ox4, pleasant and cooperative with care, follows commands well, denies pain, lungs are clear, resp even and unlabored, no cough noted, on r/a, hrr, no edema noted, ppp+1, cap refill <3 sec, vs stable, afebrile, piv to rac site is clear but positional, BTX4, hypoactive, abd flat soft nontender, voids with out diff, skin has scattered bruising, arely face, forehead, skin tear to left fa, is oozing, dressing changed this am, is bleeding through again, maew, denies any dizziness when getting up, is sba to ambulate to the bathroom, karina, call light in reach.
[2025-07-03] MEDS ORDERED: Polyethylene Glycol 3350 17 gm PO PRN (11:40)
--- NOTE | 2025-07-03 12:05 | NUR ---
pt found to be at a rate of [address] st per monitor, for about 15 mins per emissions technician, notified Dr. Dyer, will place orders, pt is not symptomatic, call light in reach.
[2025-07-03] MEDS ORDERED: Albuterol HFA200 ACT/6.7 GM INH INH PRN ×2 (12:25→14:15)
[2025-07-03] MEDS ORDERED: Ipratropium/Albuterol SulF 2.5-0.5MG/3 ML Amp INH SCH (12:25)
[2025-07-03] MEDS ORDERED: Tiotropium Bromide 2.5 MCG/ACT MIST INHAL (10 ACT/4 GM) INH SCH (14:15)
--- NOTE | 2025-07-03 15:27 | NUR ---
"Spiritual Care | Pt. Request Pt. is awake in bed when he welcomed my visit. Pt. is pleasant. Pts. friend excused himself to allow the Pt. some privacy. Faciltate a lenghty life review and consider matters of carly and belief. Listen with empathy and interest. Pt. displays evidence of engagement and trust. Prayed with pt. Pt. shook my hand and verbalized gratitude for the spiritual care visit. and welcomed this liner replacer to return."
--- NOTE | 2025-07-03 16:52 | NUR ---
PT QUITE PLEASANT TODAY. DID PULL HIS IV OUT DURING BATHROOM VISIT. SWELLING NOTED ON LEFT ELBOW FROM EARLIER INFILTRATION AT TEAR SITE. DR PREVIOUSLY EVONNEZED. DRESSING CDI AT THIS TIME. DOES NOT APPEAR TO HAVE MOVED SINCE 1300 TODAY. DID BLAYNE WITH MARKING PEN TO BE ABLE TO NOTE IF CHANGES. PT AMBULATED TO BATHROOM TODAY MIN 1 ASST. NO NEW CONCERNS NOTED. BED IN LOW POSITION, CALL LITE IN REACH, CALLS APROP
--- NOTE | 2025-07-03 17:00 | NUR ---
RE LEFT ELBOW. MARKED OUTLINE WITH SHARPIE. PULSES GOOD AT RADIAL. FINGERS WARM PINK, CAP REFILL <3SEC. PT STATES NO NEW CHANGES IN NUMB OR TING.
[2025-07-03 17:36] VITALS: BP 140/80
[2025-07-03 20:30] VITALS: BP 105/74
[2025-07-03] MEDS ORDERED: DULoxetine HCL 30 MG Cap DR PO SCH (21:00)
[2025-07-03] MEDS ORDERED: Docusate Sodium/Senna 1 Tab PO SCH (21:00)
[2025-07-03 23:42] VITALS: BP 123/77
[2025-07-04] VITALS (8 sets, daily range): BP systolic 73–154; BP diastolic 43–84
[2025-07-04 04:51] LABS: Hematocrit 26.0 % (37.0-53.0); Hemoglobin 8.7 g/dL (13.5-17.5); Mean Corpuscular HGB Conc 33.5 g/dL (31.5-36.5); Mean Corpuscular Volume 91 fL (80-100); NRBC ABSOLUTE 0.00 K/mm3 (0.00-0.02); NRBC Auto 0.0 /100 WBC (0.0-0.2); Platelet Count 177 K/mm3 (150-400); RDW Coefficient Variation 14.6 % (11.7-14.2); RDW Standard Deviation 48.6 fL (35.1-46.3)
[2025-07-04 05:22] LABS: Albumin, Blood 2.6 g/dL (3.4-5.0); Anion Gap 8 mmol/L (3-11); Blood Urea Nitrogen 20 mg/dL (8-24); CO2, Blood 23 mmol/L (21-32); Calcium, Blood 8.8 mg/dL (8.5-10.1); Chloride, Blood 109 mmol/L (98-108); Creatinine, Blood 0.91 mg/dL (0.60-1.20); Ferritin, Serum 45 ng/mL (26-388); Glucose, Blood 99 mg/dL (70-99); Magnesium, Blood 1.7 mg/dL (1.6-2.4); Phosphorus, Blood 2.9 mg/dL (2.5-4.9); Potassium, Blood 3.7 mmol/L (3.5-5.5); Sodium, Blood 136 mmol/L (136-145); Total Iron Binding Capacity 226 ug/dL (250-450)
--- NOTE | 2025-07-04 07:30 | NUR ---
A/Ox4, VSS ON RA. PT REPORTS LIGHTHEADEDNESS WHILE SEATED ON TOILET "WHEN STRAINING", EDUCATION PROVIDED, SAFETY PRECAUTIONS CONTINUED. 2 SMALL, HARD BM OVERNIGHT. SMALL AMOUNT OF NANDO BLOOD WITH STOOL. UP WITH SBA. BED IN LOWEST POSITION, CALL LIGHT IN REACH.
--- NOTE | 2025-07-04 09:00 | NUR ---
pt laying in bed awake, eating breakfast, states he's doing ok, but looks a like he isn't feeling great, ambulated to the bathroom, got dizzy, back to bed states he's doing ok, orthos were down and were positive, held metoprolol and amiodorone per Dr. Garcia, a/ox3-4, pleasant and cooperative with care, follows commands well, denies pain, lungs are clear t/o, resp even and unlaborted, no cough noted, on r/a, hrr, tele in place running sr in the 90's, piv ti rac site is clear and patent, bt x4, abd flat soft nontender, voids via urinal or bathroom, skin has multiple scattered brusing, skin tear to left upper arm, with dressing intact, no bleed through, karina ortiz, call light in reach.
--- NOTE | 2025-07-04 18:36 | NUR ---
END OF SHIFT NOTE PATIENT RESTING IN BED. A&O4, PATIENT ABLE TO MAKE NEEDS KNOWN. BED IN LOW POSITION, CALL LIGHT IN REACH. SBA TO BATHROOM AND IN ROOM. IND IN BED. DENIES NEEDS. NO OTHER CONCERNS AT THIS TIME.
[2025-07-05] VITALS (10 sets, daily range): BP systolic 102–166; BP diastolic 63–116
--- NOTE | 2025-07-05 06:28 | NUR ---
SHIFT SUMMARY PT A&OX4 AND ANSWERS QUESTIONS APPROPRIATELY. PT IS AA SBA TO THE BR. VSS, NO COMPLAINTS OF CP/PRESSURE OR SOB. PT ON TELE RUNNING AFIB, NO SYMPTOMS VERBALIZED. PT RECEIVED SCHEDULED MEDICATIONS. NO ACUTE EVENTS AT THIS TIME. NO COMPLAINTS OF PAIN AT THIS TIME. PT SPENT MOST OF SHIFT IN BED WITH CLOSED AND RESPIRATIONS EVEN AND UNLABORED. PT KEPT IN A POSITION OF SAFETY AND COMFORT WITH BED IN LOWEST POSITION, FALL PRECAUTIONS IN PLACE, CALL LIGHT IN REACH.
--- NOTE | 2025-07-05 18:39 | NUR ---
END OF SHIFT NOTE PATIENT RESTING IN BED. IND IN BED AND SBA TO [facility]. A&O4, ABLE TO MAKE NEEDS KNOWN. DENIES NEEDS. FAMILY IN TODAY AND DISCUSSED PLAN WITH DR LAW. PATIENT AWARE. NO OTHER CONCERNS FOR THIS SHIFT.
[2025-07-06] VITALS (8 sets, daily range): BP systolic 107–150; BP diastolic 57–97
--- NOTE | 2025-07-06 06:20 | NUR ---
NOC SHIFT SUMMARY PT A&OX4, AMB W/ ASSIST, TOLERATING PO, VOIDING, AND DENIED PAIN. PT'S HR UP INTO THE 150'S WHEN AMB TO THE BATHROOM, BUT BACK DOWN TO 1 TEENS AFTER RETURNING TO BED X2. PT ASYMPTOMATIC. NO ACUTE CHANGES. CALL LIGHT WITHIN REACH AND PT ABLE TO MAKE NEEDS KNOWN.
--- NOTE | 2025-07-06 09:08 | NUR ---
NOTE AROUND 0830 SUPERVISOR ELECTRIC MOTOR TESTINGUMM HERNANDEZ CALLED STATING ST DEPRESSION ON TELE LEAD. DR LAW AND NURSE IN ROOM WITH PATIENT AT THIS TIME. EKG ORDERED AND DONE AT 0900, RESULTS REVIEWED. PATIENT INSTRUCTED TO CALL FOR ANY CHANGE OF FEELINGS.
--- NOTE | 2025-07-06 14:58 | NUR ---
NOTE ORTHOSTATICS ATTEMPTED THIS MORNING, PATIENT HAD A SITTING SYSTOLIC BLOOD PRESSURE OF 70, STANDING PATIENT WAS FEELING VERY LIGHT HEADED AND ALMOST HAD LOC. PATIENT LAID DOWN AND REATTEMPTED ORTHOSTATIC READINGS AT 1430, LAYING 146/87, SITTING 130/69, STANDING 107/57.
--- NOTE | 2025-07-06 18:06 | NUR ---
END OF SHIFT NOTE PATIENT RESTING IN BED, A&O4, EATING ICE CREAM. PATIENT DENIES NEEDS, SBA TO BATHROOM, STILL HAVING MULTIPLE BOWEL MOVEMENTS. +ORTHOSTATICS EARLY THIS MORNING WITH IMPROVING ONES THIS AFTERNOON WITH A REPEAT. SERENITY STOCKINS SWITCHED TO THIGH HIGH STOCKINGS. NO OTHER CONCERNS FOR THIS SHIFT.
[2025-07-07] VITALS (8 sets, daily range): BP systolic 108–163; BP diastolic 57–105
--- NOTE | 2025-07-07 04:09 | NUR ---
HOSPITALIST CALLED CALLED HOSPITALIST DUE TO PATIENTS HEART RATE SUSTAINING 130 FOR MAJORITY OF THE NIGHT. PATIENT ASYMPTOMATIC AT THIS TIME. HOSPITALIST REVIEWING CHART AND CONSIDER ORDERS.
[2025-07-07] MEDS ORDERED: NS 250 ML IV SCH (05:00)
--- NOTE | 2025-07-07 06:18 | NUR ---
SHIFT SUMMARY PATIENT ADMITTED FOR ORTHOSTATIC HYPOTENSION. PATIENT ALERT AND ORIENTED X4. VSS. PULSE HAS BEEN SUSTAINING 130 S THROUGHOUT THE NIGHT PATIENT ASYMPTOMATIC, HOSPITALIST NOTIFIED, ORDERS PLACED. NO ACUTE EVENTS OVERNIGHT. PATIENT RESTING ALTHOUGH COMPLAINS OF NOT SLEEPING WELL THIS SHIFT. BED RAILS UP X2. BED IN LOWEST AND BED ALARM ON FOR SAFETY. CALL LIGHT WITHIN REACH.
[2025-07-07 06:22] LABS: Anion Gap 8.0 mmol/L (3-11); Blood Urea Nitrogen 16.0 mg/dL (8-24); CO2, Blood 25.0 mmol/L (21-32); Calcium, Blood 8.7 mg/dL (8.5-10.1); Chloride, Blood 104.0 mmol/L (98-108); Creatinine, Blood 0.94 mg/dL (0.60-1.20); Glucose, Blood 101.0 mg/dL (70-99); Magnesium, Blood 1.7 mg/dL (1.6-2.4); Potassium, Blood 3.3 mmol/L (3.5-5.5); Sodium, Blood 134.0 mmol/L (136-145)
--- NOTE | 2025-07-07 19:34 | NUR ---
SHIFT SUMMARY PT A&OX4, VSS, RA, AFIB 110-120S ON TELE. PO DIGOXEN GIVEN X 2 WITH NO RATE IMPROVEMENT. ORTHOSTATIC HYPOTENSION CONTINUES, PT DENIES DIZZINESS TODAY. NO ACUTE CHANGES THIS SHIFT. CALL LIGHT IN REACH.
[2025-07-08] VITALS (7 sets, daily range): BP systolic 123–153; BP diastolic 78–122
--- NOTE | 2025-07-08 05:08 | NUR ---
SHIFT SUMMARY PT IS A/OX4, PLEASANT AND COOPERATIVE WITH CARE. PT DENIES ANY PAIN THIS SHIFT. NO ACUTE CHANGES THIS SHIFT. PT REMAINS HYPERTENSIVE AND TACHYCARDIC. PT RESTED T/O SHIFT WITH EVEN AND UNLABORED RESPIRATIONS, BED IN THE LOWEST POSITION, AND CALL LIGHT WITHIN REACH.
--- NOTE | 2025-07-08 14:31 | NUR ---
Pt. is awake and welcomes my visit. Pt. is pleasant. Facilitated an update and the Pt. verbalized disappointed that his discharge was cancelled. Listened with empathy and a calming present and sought normalize the Pt. experience. Pt. verbalized understanding and agreement. Prayed with the Pt. Pt. verbalzied gratitude for the spiritual care visit.
--- NOTE | 2025-07-08 18:35 | NUR ---
SHIFT SUMMARY PT A&OX4, ORTHOSTATIC HYPOTENSION, AFIB/FLUTTER 115-140S ON TELE. AMIODERONE RESTARTED TODAY ALONG WITH THE ADDITION OF MIDODRINE. SBA FOR SAFETY. PT PLEASANT AND COOPERATIVE WITH CARE, CALL LIGHT IN REACH.
[2025-07-09] VITALS (12 sets, daily range): BP systolic 77–237; BP diastolic 56–185
--- NOTE | 2025-07-09 04:31 | NUR ---
SHIFT SUMMARY A&OX4. ABLE TO MAKE NEEDS KNOWN. WAS ABLE TO REST THROUGHOUT THE NIGHT WITH NO NEW CHANGES. TELE REMAINS IN PLACE AND PT HAS NOT HAD ANY DIZZINESS. HR REMAINS TACHY IN THE LOW 100'S. NO NEW EVENTS/STATUS CHANGES. PT CURRENTLY SLEEPING IN BED AT LOWEST POSITION WITH CALL LIGHT WITHIN REACH.
[2025-07-09 05:12] LABS: Anion Gap 8.0 mmol/L (3-11); Blood Urea Nitrogen 16.0 mg/dL (8-24); CO2, Blood 25.0 mmol/L (21-32); Calcium, Blood 8.9 mg/dL (8.5-10.1); Chloride, Blood 105.0 mmol/L (98-108); Creatinine, Blood 0.89 mg/dL (0.60-1.20); Glucose, Blood 114.0 mg/dL (70-99); Potassium, Blood 3.4 mmol/L (3.5-5.5); Sodium, Blood 135.0 mmol/L (136-145)
--- NOTE | 2025-07-09 08:10 | NUR ---
DR. LAW NOTIFIED OF ORTHOSTATICS. PT REPORTS DIZZINESS WITH STANDING. PER DR. LAW OK TO GIVE AMIODIRONE, DIGOXIN, AND MIDODRINE IF APPROPRIATE AFTER RETAKING BP WHILE LAYING. DR. LAW TO LOOK OVER CHART AND PLACE ADDITIONAL ORDERS APPROPRIATE.
--- NOTE | 2025-07-09 13:26 | NUR ---
PT IS BEING DISCHARGED HOME. DISCHARGE INSTRUCTIONS INCLUDING MEDICATION CHANGE DISCUSSED WITH PT. PT VERBALIZED UNDERSTANDING OF DISCHARGE INSTRUCTIONS AND HAS NO CONCERNS OR QUESTIONS AT THIS TIME. PT IS AWAITING A RIDE FROM MOTHER. IV HAS BEEN D/C.
--- NOTE | 2025-07-09 16:40 | NUR ---
PT CONTINUED TO EXPERIENCE SEVERE ORTHOSTATIC HYPOTENSION. PLAN IS TO SEE HOW PT DOSE WITH CURRENT MEDICATION REGIMEN. PT IS A FALL RISK AND IMPULSIVE. EDUCATION PROVIDED ON NECESSITY TO CALL EVERYTIME HE GETS OUT OF BED. PT NOT USING CALL LIGHT APPROPRIATELY, BED ALARM IS ON. NO CHANGES THIS SHIFT.
--- NOTE | 2025-07-09 18:34 | NUR ---
THIS RN NOTIFIED BY SUPERVISOR PAPER [employer]ODUCTS OF ST CHANGES, BOTH ELEVATION AND DEPRESSION. PT WITHOUT CHESTPAIN. DENIES N/V, DIZZINESS, HEADACHE. EKG OBTAINED. DR. LAW NOTIFIED. NO NEW ORDERS.
[2025-07-10] VITALS (7 sets, daily range): BP systolic 119–158; BP diastolic 80–94
--- NOTE | 2025-07-10 05:08 | NUR ---
SHIFT SUMMARY ADMITTED FOR ORTHOSTATIC HYPOTENSION. FULL CODE. PLAN IS FOR DC HOME WITH NEPHEW WHEN BP'S ARE STABLE. HE IS A&O X4, STANDBY ASSIST, ON RA, ADA DIET. TELEMETRY: AFIB @ 125 BPM. HE HAS BEEN NOTED TO TRANSITION TO AFLUTTER. ST ELEVATIONS AND DEPRESSIONS REPORTED ON PREVIOUS SHIFT AND THIS SHIFT, HOSPITALIST IS AWARE. NO S/SX OR CHEST PAIN FROM THIS. HE IS A [facility] PATIENT. BED ALARM IS ACTIVE HE CAN BE IMPULSIVE. HX OF GLF'S, HIGH FALL RISK. ORTHOSTATIC VITALS TAKEN DAILY.
[2025-07-10] MEDS ORDERED: Digoxin 0.25 MG in NS 4 ML IV ONE (18:10)
--- NOTE | 2025-07-10 19:20 | NUR ---
PT ALERT AND ORIENTED X4, STANDBY ASSIST TO RESTROOM DUE TO MULTIPLE FALLS AT HOME. PT DOES STATE FEELING DIZZY AT TIMES WHEN AMBULATING. ORTHOSTATIC BP'S POSITIVE THIS AM- MD AWARE-MIDODRINE DOSE INCREASED THIS PM, BLOOD GLUCOSE WNL, TELE AFIB HR92 BUT PT DOES BECOME TACHYCARDIC WITH ACTIVITY. BED ALARM ON AT ALL TIMES, BEDSIDE TABLE IN REACH, CALL LIGHT IN REACH.
[2025-07-11] VITALS (10 sets, daily range): BP systolic 107–151; BP diastolic 70–91
--- NOTE | 2025-07-11 04:38 | NUR ---
END OF SHIFT SUMMARY: AxOX4. FULL CODE. ADMITTED FOR ORTHOSTATIC HYPOTENSION. PATIENT IS ON TELE- AFIB - SINUS TACHYCARDIA @ 120 BPM. PATIENT IS ABLE TO MAKE NEEDS KNOWN. PATIENT CAN IS A STANDBY ASSIST TO THE BATHROOM. PATIENT TAKES MEDS WHOLE WITH FLUIDS. BED IN LOWEST POSITION. CALL LIGHT WITHIN REACH AND PATIENT HAS BEEN EDUCATED ON HOW TO USE. WILL REPORT TO ONCOMING NURSE.
[2025-07-11] MEDS ORDERED: NS 1,000 ML IV SCH (13:40)
--- NOTE | 2025-07-11 18:24 | NUR ---
SHIFT SUMMARY PATIENT IS A&OX4, ON ROOM AIR AND RUNNING AFIB WITH SINUS TACHYCARDIA ON TELEMETRY, HE HAS BEEN TACHY UP TO 130 WITH AMBULATION TO AND FROM THE BATHROOM BUT RECOVERS. PROVIDER ORDERED 1,000ML OF NS AT 100ML/HR. HE IS A SBA FOR SAFETY, CONTINENT. PLEASANT AND COOPERATIVE WITH CARE. USES CALL SYSTEM APPROPRIATELY. BED IS LOW AND LOCKED, CALL LIGHT IN REACH.
[2025-07-12] VITALS (7 sets, daily range): BP systolic 124–169; BP diastolic 56–71
--- NOTE | 2025-07-12 04:41 | NUR ---
NO ACUTE CHANGES DURING SHIFT. PATIENT ALERT AND ORIENTED X4, ABLE TO MAKE NEEDS KNOWN. PATIENT ABLE TO TURN SELF IN BED, UP TO BATHROOM WITH 1 ASSIT. IV FLUIDS RUNNING AT [address]-RUNNING AFLUTTER/AFIB. PATIENT USE CALL LIGHT APPROPRIATELY. BED IN LOW POSITION WITH WHEELS LOCKED. CALL LIGHT WITHIN REACH
[2025-07-12 04:46] LABS: Anion Gap 7.0 mmol/L (3-11); Blood Urea Nitrogen 20.0 mg/dL (8-24); CO2, Blood 25.0 mmol/L (21-32); Calcium, Blood 8.6 mg/dL (8.5-10.1); Chloride, Blood 108.0 mmol/L (98-108); Creatinine, Blood 0.98 mg/dL (0.60-1.20); Glucose, Blood 104.0 mg/dL (70-99); Potassium, Blood 3.8 mmol/L (3.5-5.5); Sodium, Blood 136.0 mmol/L (136-145)
[2025-07-12 17:35] LABS: DOPAMINE 218 pmol/L (<=240); EPINEPHRINE 146 pmol/L (<=330); NOREPINEPHRINE 3429 pmol/L (1050-4800)
--- NOTE | 2025-07-12 18:23 | NUR ---
SHIFT SUMMARY PATIENT IS A&OX4. HE IS ON ROOM AIR, HAS TELE RUNNING A FLUTTER WITH BBB AND 59BPM. THIS RN HELD THE DIGOXIN AND CALLED DOC REGARDING THE MORNING DOSE OF METOPROLOL. DOC ADVISED TO HOLD THE MED. HIS BLOOD PRESSURES AND HEART RATE HAVE REMAINED IN AN ACCEPTABLE RANGE THROUGHOUT THIS SHIFT. DRESSING TO LEFT ELBOW SKIN TEAR WAS REPLACED. GANG MINER CHANGED IV FROM LEFT WRIST TO RIGHT AC. HE IS SBA FOR SAFETY, CONTINENT. CONTINUES TO BE COOPERATIVE WITH CARE BUT DOES HAVE A HABIT OF NOT CALLING BEFORE GETTING UP, SO THE BED ALARM IS SET. BED IS CURRENTLY LOW AND LOCKED, CALL LIGHT IN REACH.
[2025-07-13] VITALS (12 sets, daily range): BP systolic 82–161; BP diastolic 49–86
--- NOTE | 2025-07-13 03:02 | NUR ---
PATIENT CONVERTED TO SINUS RHYTHM PER CONSULTING SERVICES ASSOCIATE AT 0000 HOURS.
--- NOTE | 2025-07-13 06:10 | NUR ---
SHIFT SUMMARY PATIENT ADMITTED FOR ORTHOSTATIC HYPOTENSION. ALERT AND ORIENTED X4, ABLE TO MAKE NEEDS KNOWN. PATIENT HAS NO COMPLAINTS OF DIZZINESS THIS SHIFT. NO ACUTE OVERNIGHT EVENTS. PATIENT RESTING WITH EYES CLOSED, RESPIRATIONS EVEN AND UNLABORED. BED RAILS UP X2. BED ALARM ON AND BED IN LOWEST POSITION FOR SAFETY. CALL LIGHT WITHIN REACH.
--- NOTE | 2025-07-13 17:40 | NUR ---
SHIFT SUMMARY PATIENT IS A&OX4. HE IS ON ROOM AIR, HE HAS TELE RUNNING A FLUTTER WITH BBB IN THE 60'S. METOPROLOL DOSE HAS BEEN ADJUSTED TO ACCOMADATE EPISODE OF TACHY TODAY WHEN PATIENT FIRST AWOKE TO AMBULATE TO BATHROOM. HIS HEART RATE HAS REMAINED STABLE SINCE. ORTHOSTATIC BLOOD PRESSURES ARE STILL POSITIVE. HE IS A SBA FOR SAFETY, BED ALARM IS ON FOR IMPULSIVENESS. BED IS LOW AND LOCKED, CALL LIGHT IN REACH.
--- NOTE | 2025-07-13 21:46 | NUR ---
PT DRESSING ON LEFT UPPER EXTREMITY CHANGED. DRESSING IS C/D/I
[2025-07-14] VITALS (13 sets, daily range): BP systolic 77–165; BP diastolic 53–75
--- NOTE | 2025-07-14 04:05 | NUR ---
SHIFT SUMMARY: PT IS SLIGHTLY CONFUSED AND FORGETS TO CALL AT TIMES. BED ALARM IS SET FOR SAFETY DUE TO IMPULSIVE BEHAVIOR. PT IS AOX3-4. NO ACUTE CHANGES THIS SHIFT.
--- NOTE | 2025-07-14 05:22 | NUR ---
teletypesetter monitor reveiw. Pt is in atrial flutter rate 60's at this time. Pt did have an episode of Afib heart rate in 120's to 130's. Dr. Bermudez was notified by pt primary nurse and orders received.
--- NOTE | 2025-07-14 05:35 | NUR ---
telegrapher agent monitor review. Patient in afib/ a flutter rate 60's.
--- NOTE | 2025-07-14 17:14 | NUR ---
SHIFT SUMMARY PT IS A/OX4. SBA WITH FWW. NO ACUTE EVENTS THROUGHOUT THIS SHIFT. PT REMAINS POSITIVE FOR ORTHOSTATIC HYPOTENSION, ASYMPTOMATIC. ON TELE RUNNING AFLUTTER IN THE 60'S, UP TO THE 120-130'S WITH EXERTION. PT IS PLEASANT AND COOPERATIVE WITH CARE AND CALLS APPROPRIATELY.
[2025-07-15 00:55] VITALS: BP 150/76
--- NOTE | 2025-07-15 04:14 | NUR ---
SHIFT SUMMARY: PT IS AOX3-4 WITH SLIGHT CONFUSION AT TIMES. PT FORGETS TO CALL AT TIMES AND IMPULSIVELY GETS UP WITHOUT A STAFF MEMBER PRESENT. BED ALARM SET FOR SAFETY. NO ACUTE CHANGES THIS SHIFT. PT IS A SBA TO THE BATHROOM AND IS CONT/INCONT.
[2025-07-15 04:56] VITALS: BP 141/67
[2025-07-15 07:48] VITALS: BP 149/70
[2025-07-15 09:02] VITALS: BP 137/69
[2025-07-15 09:07] VITALS: BP 144/77
[2025-07-15 09:12] VITALS: BP 99/68
[2025-07-15] MEDS ORDERED: ATOM40 PO (11:32)
[2025-07-15] MEDS ORDERED: SENN187 PO (11:32)
[2025-07-15] MEDS ORDERED: PANT20 PO (11:33)
[2025-07-15] MEDS ORDERED: TIOT18 INH (11:33)
[2025-07-15] MEDS ORDERED: FERSU300 PO (11:33)
--- NOTE | 2025-07-15 12:22 | NUR ---
DISCHARGE PT DISCHARGED HOME VIA W/C. MEDICATION ORDERS FAXED TO [facility]. IV REMOVED. FAMILY HERE TO TRANSPORT.
== END 2025-07-15 12:23 | disposition home or self-care (01) | DRG 312 ==
LOC: ER 15:39 → MEDS 15:40 → ERHOLD 15:40 → MEDS 23:13 → ENPENDDIS 07-15 11:42 → MEDS 07-15 12:23
PROVIDERS: Internal Medicine; Student in an Organized Health Care Education/Training Program; ADMIT Student in an Organized Health Care Education/Training Program
DX: I95.1 Orthostatic hypotension (principal); I10 Essential (primary) hypertension; E78.5 Hyperlipidemia, unspecified; N40.0 Benign prostatic hyperplasia without lower urinary tract symptoms; G25.81 Restless legs syndrome; E11.42 Type 2 diabetes mellitus with diabetic polyneuropathy; J44.9 Chronic obstructive pulmonary disease, unspecified; R29.6 Repeated falls; F32.A Depression, unspecified; M19.90 Unspecified osteoarthritis, unspecified site; I25.10 Atherosclerotic heart disease of native coronary artery without angina pectoris; I45.10 Unspecified right bundle-branch block; I48.0 Paroxysmal atrial fibrillation; S41.112A Laceration without foreign body of left upper arm, initial encounter; G47.00 Insomnia, unspecified; D50.9 Iron deficiency anemia, unspecified; Z95.1 Presence of aortocoronary bypass graft; Z88.5 Allergy status to narcotic agent; Z88.8 Allergy status to other drugs, medicaments and biological substances; Z79.01 Long term (current) use of anticoagulants; Z79.02 Long term (current) use of antithrombotics/antiplatelets; Z79.899 Other long term (current) drug therapy; Z96.653 Presence of artificial knee joint, bilateral; Z98.890 Other specified postprocedural states; W01.0XXA Fall on same level from slipping, tripping and stumbling without subsequent striking against object, initial encounter
CPT/HCPCS: 36415; 70450; 71046; 72125; 73080; 73110; 73502; 80048; 80053; 80069; 80162; 82384; 82728; 82947; 83540; 83550; 83735; 83880; 84443; 84484; 85025; 85027; 93005; 93010; 93306; 94640; 94664; 94760; 97110; 97116; 97161; 97530; 99285-25; A9270; G0378; J1160; J7030; J7050